=== PATIENT | female | born 1945 | race Caucasian/White ===

== ENCOUNTER 2018-07-28 17:24 | Inpatient (IN) ==
--- NOTE | 2018-07-28 17:48 | Emergency Department Note ---
Disposition Clinical Impression: Stroke Qualifiers: CVA mechanism: unspecified Qualified Code(s): I63.9 - Cerebral infarction, unspecified Anemia Qualifiers: Anemia type: unspecified type Qualified Code(s): D64.9 - Anemia, unspecified Disposition: Admitted As Inpatient Condition: Good Time of Disposition: 20:36 General Adult HPI - General Chief complaint: ED Neuro Symptoms/Deficit Stated complaint: numb left side Time Seen by Provider: 07/28/18 17:26 Source: patient, EMS Mode of arrival: EMS Limitations: no limitations Nursing Notes Reviewed: Yes Vital Signs Reviewed: Yes - History of Present Illness HPI Narrative: Franca Ferguson is a 72 YOF with history of HTN, TIA, DDD who presents to the ED via EMS from home due to left-sided nubness is approximately 1000 this morning. Patient also admits to difficulty with word finding. She also admits to "starry vision" intermittently. She denies any new onset weakness and is unable to ambulate at baseline. She states that she hasn't been feeling well for the past couple days. She denies CP, SOB, lightheadedness, dizziness, N/V/D. Pt Subjective Complaint: left-sided numbness Pain Scale: 0 - Related Data Home Medications Medication Instructions Recorded Confirmed Percocet 5-325 mg Tablet 5 - 325 tab PO PRN PRN 09/11/14 09/11/14 Synthroid 09/11/14 09/11/14 Atenolol/Chlorthalidone [Tenoretic 03/26/15 50 Tablet] Ferrous Sulfate [Iron] 03/26/15 FluocinoNIDE 0.05% CRM [Lidex] 1 appl TP BID 03/26/15 03/26/15 Ketoconazole 2% CRM [Nizoral Cream] 03/26/15 LORazepam [Ativan] 03/26/15 Potassium 03/26/15 Previous Rx's Medication Instructions Recorded Promethazine/Codeine 5 ml PO HS #60 syrup 03/26/15 [Phenergan/Codeine] Benzonatate [Tessalon] 200 mg PO TID PRN #30 capsule 06/25/15 GuaiFENesin ER [Mucinex] 1,200 mg PO BID #20 tbbp.12hr 06/25/15 cephALEXin [Keflex] 500 mg PO QID #40 capsule 06/25/15 Allergies Allergy/AdvReac Type Severity Reaction Status Date / Time azithromycin Allergy Rash Verified 06/25/15 14:49 [From Zithromax Z-Zackery] All systems ED: reviewed and negative except as stated. Past Medical History - Past Medical History Medical history: Reports: hypertension, TIA Surgical history: Reports: appendectomy, cholecystectomy, hip replacement, sinus surgery Psychiatric history: Reports: no psych history - Social History Smoking Status: Never smoker Smokeless Tobacco Status: No Alcohol use: Reports: none Drug use: Reports: none Physical Exam - General Limitations: no limitations General appearance: alert, in no apparent distress - Head Head exam: atraumatic, normocephalic - Eye Eye exam: Present: normal appearance, EOMI - ENT ENT exam: mucous membranes moist - Neck Neck exam: Present: normal inspection, trachea midline - Respiratory Respiratory exam: Present: normal lung sounds bilaterally. Absent: respiratory distress, wheezes, accessory muscle use - Cardiovascular Cardiovascular exam: Present: regular rate, normal rhythm, +S1, +S2 - Abdominal Exam Abdominal exam: Present: soft, Non-Tender, normal bowel sounds - Rectal Exam Bilingual Case Manager present during exam: Yes (Dr. Gee) Rectal exam: Present: other (No edgar blood, guaic positive stool) - Extremities Exam Extremities exam: Present: tenderness (left mid-dorsum of the foot). Absent: pedal edema - Neurological Exam Neurological exam: Present: alert, oriented X3, CN II-XII intact - Expanded Neurological Exam Speech: Present: fluid speech (mild difficulty with word finding) Cerebellar function: finger to nose: Normal Motor strength - LUE: 4/5 Motor strength - RUE: 4/5 Motor strength - LLE: 0/5 (patient's states this is baseline) Motor strength - RLE: 0/5 (patient states this is baseline) - Psychiatric Psychiatric exam: Present: normal affect, normal mood - Skin Skin exam: Present: warm, dry, intact. Absent: rash, cyanosis, diaphoresis Course Vital Signs Temperature 98.8 F 07/28/18 17:26 Pulse Rate 79 07/28/18 17:26 Respiratory Rate 18 07/28/18 17:26 Blood Pressure 140/65 07/28/18 17:26 O2 Sat by Pulse Oximetry 95 07/28/18 17:26 Temperature 98.8 F 07/28/18 17:26 Pulse Rate 78 07/28/18 18:20 Respiratory Rate 18 07/28/18 18:20 Blood Pressure 137/64 07/28/18 18:20 O2 Sat by Pulse Oximetry 95 07/28/18 17:26 Oxygen Delivery Oxygen Delivery Room Air Medical Decision Making - MDM Narrative Medical decision making narrative: Left-sided decreased sensations since 1000 today, stoke alert called. NIH score of 2 [facility] consulted, not candidate for TPA or surgical intervention. Recommended MRI. CT head suggestive of subacute infarction in right occipital and parietal lobes in the distribution of the RCA. No associated intracranial hemorrhage. Rectal exam performed dt unexplained anemia, stool guaiac positive. Suspected bed bug discovered by Dr. Gee during exam, live sample sent to lab. Patient accepted for admission by Dr. Rivera for further evaluation with MRI. - Medical Records Medical records reviewed: Yes I reviewed the patient's medical records. - Lab Data Lab results reviewed: Yes I reviewed the patient's lab results. Result diagrams: 07/28/18 17:42 07/28/18 17:42 Lab Results 07/28/18 07/28/18 07/28/18 Range/Units 17:29 17:42 17:42 WBC 7.8 (4.3-11.1) K/mcL RBC 3.81 L (3.82-4.97) M/mcL Hgb 8.3 L (11.5-15.4) g/dL Hct 30.0 L (35.3-44.9) % MCV 78.7 L (83.0-100.0) fL MCH 21.8 L (28.0-33.3) pg MCHC 27.7 L (31.6-35.5) g/dL RDW 18.7 H (11.5-14.5) % Plt Count 365 (140-400) K/mcL MPV 8.5 L (9.4-12.4) fL PT 12.2 H (9.4-12.1) Seconds INR 1.1 APTT 34.0 (26.0-36.0) Seconds Sodium (136-145) mEq/L Potassium (3.5-5.1) mEq/L Chloride (98-107) mEq/L Carbon Dioxide (23-29) mEq/L BUN (8-23) mg/dL Creatinine (0.60-1.20) mg/dL Est GFR ( Amer) (> 60) Est GFR (Non-Af Amer) (> 60) BUN/Creatinine Ratio (6-26) Glucose (70-105) mg/dL POC Glucose 131 H (70-99) mg/dL Calculated Osmolality (280-300) Calcium (8.6-10.3) mg/dL Troponin I (< 0.04) ng/mL Stool Occult Bld Scrn (Negative) 07/28/18 07/28/18 Range/Units 17:42 19:56 WBC (4.3-11.1) K/mcL RBC (3.82-4.97) M/mcL Hgb (11.5-15.4) g/dL Hct (35.3-44.9) % MCV (83.0-100.0) fL MCH (28.0-33.3) pg MCHC (31.6-35.5) g/dL RDW (11.5-14.5) % Plt Count (140-400) K/mcL MPV (9.4-12.4) fL PT (9.4-12.1) Seconds INR APTT (26.0-36.0) Seconds Sodium 138 (136-145) mEq/L Potassium 3.7 (3.5-5.1) mEq/L Chloride 107 (98-107) mEq/L Carbon Dioxide 25 (23-29) mEq/L BUN 12 (8-23) mg/dL Creatinine 0.55 L (0.60-1.20) mg/dL Est GFR ( Amer) > 60 (> 60) Est GFR (Non-Af Amer) > 60 (> 60) BUN/Creatinine Ratio 22 (6-26) Glucose 115 H (70-105) mg/dL POC Glucose (70-99) mg/dL Calculated Osmolality 287 (280-300) Calcium 9.6 (8.6-10.3) mg/dL Troponin I < 0.03 (< 0.04) ng/mL Stool Occult Bld Scrn Positive A (Negative) - Radiology Data Radiology results reviewed: Yes I reviewed the patient's radiology results. - EKG Data EKG #1 EKG attestation: Yes I reviewed and interpreted this EKG. EKG results narrative: Read AFib/AFlutter although could also be artifact HR 84, RR 716, QRS duration 1:15 QT 384 QTC 454. No acute ischemic changes, no ST elevation or depression, no Q waves. Attestation Statement - Attestation Attestation: I, Mukul Gee, examined this patient and my medical decision-making was reviewed with the DIRECTOR VACCINE/PA/Advanced Practice Nurse/Resident Physician. I agree with the documented findings, disposition and treatment plan as described except to the e xtent set forth below. 72-year-old female presents emergency Department with concerns of paresthesias of the left face, left upper extremity and left lower extremity. Patient states she woke with her symptoms and did not have them yesterday. Stroke alert was called after the initial evaluation. She denies fever, chills, nausea, vomiting and diarrhea. Patient is moving all extremities in the emergency department. Abdomen is nontender to palpation. Laboratory results showed anemia. Rectal exam was performed with filter assembler present showing guaiac positive stool. CT of the head showed likely subacute infarct. No acute extremity hemorrhage noted. Patient will be admitted to the hospitalist for further care and evaluation and MRI. Patient is outside of the window for TPA. She is not be criteria for thrombectomy. NIH Stroke Scale - Level of Consciousness LOC: Alert - LOC Questions LOC Questions: Answers both correctly - LOC Commands LOC Commands: Performs both correctly - Best Gaze Best Gaze: Normal - Visual Visual: No visual loss - Facial Palsy Facial Palsy: Normal - Motor Arms Motor Arm-Left: No drift for 10 seconds Motor Arm-Right: No drift for 10 seconds - Motor Legs Motor Leg-Left: No drift for 5 seconds Motor Leg-Right: No drift for 5 seconds Motor Leg Comment: unable to life legs at baseline - Limb Ataxia Limb Ataxia: Absent of affected limb too weak to perform exam - Sensory Sensory: Mild to moderate loss, "not as sharp" - Best Language Best Language: Mild to moderate aphasia. Examiner can identify picture from response (difficulty with word finding, needs extra time) - Dysarthria Dysarthria: Normal - Extinction and Inattention Extinction and Inattention: Normal - NIHSS Total Score NIHSS Total Score: 2
[2018-07-28 17:52] LABS: Hemoglobin 8.3 g/dL (11.5-15.4); Mean Corpuscular HGB Conc 27.7 g/dL (31.6-35.5); Mean Corpuscular Hemoglobin 21.8 pg (28.0-33.3); Mean Corpuscular Volume 78.7 fL (83.0-100.0); Mean Platelet Volume 8.5 fL (9.4-12.4); Platelet Count 365 K/mcL (140-400); Red Blood Count 3.81 M/mcL (3.82-4.97); Red Cell Distribution Width 18.7 % (11.5-14.5); White Blood Count 7.8 K/mcL (4.3-11.1)
[2018-07-28 18:04] LABS: INR 1.1; Prothrombin Time 12.2 Seconds (9.4-12.1)
[2018-07-28 19:10] LABS: BUN/Creatinine Ratio 22 (6-26); Blood Urea Nitrogen 12 mg/dL (8-23); Calcium 9.6 mg/dL (8.6-10.3); Carbon Dioxide 25 mEq/L (23-29); Chloride 107 mEq/L (98-107); Glucose 115 mg/dL (70-105); Osmolality,Calculated 287 (280-300); Potassium 3.7 mEq/L (3.5-5.1); Sodium 138 mEq/L (136-145); eGFR For African Americans > 60 (> 60); eGFR For Non-African Americans > 60 (> 60)
[2018-07-28 19:17] LABS: Troponin I < 0.03 ng/mL (< 0.04)
[2018-07-28] MEDS ORDERED: Aspirin 325 MG TABLET PO ONE (20:37)
[2018-07-28] MEDS ORDERED: 0.9 % Sodium Chloride 1,000 ML IVC SCH (21:45)
[2018-07-29] MEDS ORDERED: Naloxone 0.4 MG/ML INJ IVP PRN (00:05)
[2018-07-29] MEDS ORDERED: Pantoprazole 40 MG VIAL IVP SCH (00:52)
--- NOTE | 2018-07-29 00:55 | Internal Med History&Physical ---
Date of Encounter: 07/29/18 Time of Encounter: 00:50 Internal Medicine - H&P: HPI Chief complaint: Left-sided numbness History of present illness: Ms. Ferguson is a 72 year old female with a past medical history of COPD on 2 L nasal cannula, sleep apnea, hypertension, thyroid disease, GERD and TIA who presented to the ED with complaints of acute onset left-sided numbness which began around 10 AM this morning. She states she initially noted numbness and tingling around the left side of her mouth which then spread to involve the left side of her face and extended downwards to her arm and leg. She is also noting difficulty expressing herself, stating that she knows what she wants to say but is having difficulty getting the words out which his not normal for her. She reports significant weakness and fatigue which began about 3 days ago. Patient was noted to have a low hemoglobin on arrival but denies any dark tarry stools or bloody stools. Patient reports she has had a colonoscopy in the past but does not recall how long ago. No reports of unintentional weight loss. She denies fever, chills, shortness of breath, chest pain, nausea, vomiting and diarrhea. Shortly after arrival, Stroke alert was called after the initial evaluation. CT of the head showed likely subacute infarct. Patient was deemed not a candidate for TPA and recommended MRI of the brain with further workup. EKG reviewed was normal sinus rhythm with no evidence of ischemic changes. On arrival vitals were stable with a blood pressure 140/65, heart rate is 79, saturating 95% on 2 L. Laboratory workup notable for a normal WBC, hemoglobin of 8.3 and normal kidney function and coags. Rectal exam performed in the ED demonstrated guaiac positive stool. On my assessment patient continues to report numbness on the left side of the face and extremities. Past Med Surg Social Fam HX - Past Medical History Medical history: hypertension, TIA Psychiatric history: no psych history - Past Surgical History Surgical History: appendectomy, cholecystectomy, hip replacement, sinus surgery Additional surgical history: ORAL SURGERY UNSPECIFICED. GASTRIC BYPASS 1992 - Social History Smoking Status: Never smoker Smokeless Tobacco Status: No Alcohol use: none Drug use: none - Additional Family History Additional family history: Noncontributory Internal Medicine - H&P: Meds Gabapentin [Neurontin] 600 mg PO HS 07/29/18 [History] Non-Formulary Medication 07/29/18 [History] Oxycodone HCl/Acetaminophen [Percocet 5-325 mg Tablet] 1 each PO Q6H PRN 07/29/18 [History] Allergy/AdvReac Type Severity Reaction Status Date / Time azithromycin Allergy Rash Verified 07/29/18 14:22 [From Zithromax Z-Zackery] All Systems PM: A 10-system review of systems was performed and is negative for pertinent findings except as documented above in the HPI. - Constitutional Constitutional: no chills, no fever(s), no night sweats - EENT Eyes: no change in vision, no discharge, no pain, no photophobia Ears: no ear discharge, no ear pain, no tinnitus Nose, mouth and throat: no dysphagia, no nasal discharge, no neck pain, no sore throat - Cardiovascular Cardiovascular ROS IM: no chest pain, no diaphoresis, no dyspnea, no lightheadedness, no palpitations, no syncope - Respiratory Respiratory: no cough, no dyspnea, no wheezing, no excessive phlegm production - Gastrointestinal Gastrointestinal: no abdominal pain, no diarrhea, no hematemesis, no hematochezia, no melena, no nausea, no vomiting - Genitourinary Genitourinary: no change in urinary stream, no dysuria, no flank pain, no hematuria - Musculoskeletal Musculoskeletal ROS IM: no numbness, no tingling - Integumentary Integumentary IM: no rash, no unusual bruising - Neurological Neurological ROS: no confusion, no convulsions, no focal weakness, no numbness, no tingling, no tremor(s) - Hematologic/Lymphatic Hematologic/Lymphatic: no easy bruising - Constitutional Vitals: Temp Pulse Resp BP Pulse Ox 98.3 F 77 14 178/96 99 07/28/18 22:46 07/28/18 22:46 07/28/18 22:46 07/28/18 22:46 07/28/18 23:00 Exam: General: Alert and oriented 3 lying in bed in no acute distress Skin:Normal color, no rash, no lesions. HEENT:EOM, pupils equal, round and reactive. Cardiovascular:Normal S1 & S2, no rubs, murmurs or gallops. No JVD. Pulse regular. Lungs:Normal breath sounds, no wheezes or crackles. Abdomen:Soft, non-tender, no rigidity. Extremities:No deformity, no edema or tenderness, no joint swelling or clubbing. Neurological:Normal cognition; cranial nerves II through XII intact; mild left-sided pronator drift. Upper and lower extremity strength 5 out of 5 bilaterally. No dysmetria. Diminished sensation on the left side of the face and upper and lower extremities as compared to the right Pulses:Carotid and radial pulses normal +2. Rest of the physical exam is non contributory Internal Med - H&P Results - Labs CBC & Chem 7: 07/29/18 14:41 07/29/18 05:16 Labs: Short CBC 07/28/18 Range/Units 17:42 WBC 7.8 (4.3-11.1) K/mcL Hgb 8.3 L (11.5-15.4) g/dL Hct 30.0 L (35.3-44.9) % Plt Count 365 (140-400) K/mcL BMP 07/28/18 17:42 Sodium 138 Potassium 3.7 Chloride 107 Carbon Dioxide 25 BUN 12 Creatinine 0.55 L Glucose 115 H Calcium 9.6 Cardiac Enzymes 07/28/18 Range/Units 17:42 Troponin I < 0.03 (< 0.04) ng/mL - Impressions ITS Impressions Head CT 07/28/18 17:45 IMPRESSION: 1. Suspicion for a subacute infarction in the right occipital and parietal lobes in the distribution of the right posterior cerebral artery. No associated intracranial hemorrhage. Consider MRI. Critical results were called by Dr. Ayden Dimas MD to Tonia Nunez on 07/28/2018 at 18:18. 2. Moderate to severe white matter disease most likely due to chronic small vessel ischemia. Underlying punctate areas of ischemia would be difficult to exclude. 3. Suspected old lacunar infarcts in the bilateral basal ganglia. D/ / Ayden Dimas MD / Ayden Dimas MD Interpreting Provider: Ayden Dimas MD - Assessment and Plan (1) Stroke-like symptoms Current Visit: Yes Status: Acute Assessment and plan: 72-year-old female with a past medical history significant for hypertension and TIA in the remote past presenting with acute onset left-sided numbness involving the face and extremities with what appears to be expressive aphasia which began around 10 AM this morning concerning for CVA. CT scan of the head suspicious for a subacute infarction in the right occipital and parietal lobes in the distribution of the right posterior cerebral artery. Patient evaluated by [facility] neurology and was not a candidate for TPA and recommended further workup with MRI. EKG reviewed which showed normal sinus rhythm without any evidence of ischemic changes. Continues to have persistent diminished sensation on left side of the face and upper and lower extremities. Patient received loading dose of aspirin in the ED. -Neurochecks -Telemetry -Holding antihypertensives to allow for permissive hypertension -Echocardiogram/carotid duplex in the morning -MRI of the brain without contrast if possible. Patient does have history of hip replacement approximately 6 years ago. Otherwise consider CTA of the head and neck -PT/OT consult -Consult to neurology (2) Anemia Current Visit: Yes Status: Acute Assessment and plan: Patient presenting with microcytic anemia with a hemoglobin of 8.3 and MCV of 78.7. Hemoccult testing positive per ED assessment. Last hemoglobin assessment in our records was in 2014 with a hemoglobin of 10.0. Patient has a history of GERD and documented in her records although denies it. Has had previous colonoscopy several years back which is not in our records. She states several polyps were removed. No reports of unintentional weight loss though patient does admit to losing weight intentionally. -Patient was typed and screened -We will trend H&H -We will keep patient NPO -Given history of GERD we will start patient on IV Protonix 40 mg twice a day -Consult to gastroenterology Qualifiers: Anemia type: unspecified type Qualified Code(s): D64.9 - Anemia, unspecified (3) GI bleed Current Visit: Yes Status: Suspected Assessment and plan: Patient presenting with a hemoglobin of 8.3 with Hemoccult positive stools. -Trend troponin. Continue with IV hydration. -See anemia above Qualifiers: GI bleed type/associated pathology: unspecified gastrointestinal hemorrhage type Qualified Code(s): K92.2 - Gastrointestinal hemorrhage, unspecified (4) Hypertension Current Visit: Yes Status: Chronic Assessment and plan: BP stable. Holding antihypertensives for now to allow for permissive hypertension Qualifiers: Hypertension type: essential hypertension Qualified Code(s): I10 - Essential (primary) hypertension (5) DVT prophylaxis Current Visit: Yes Status: Acute Assessment and plan: Intermittent pneumatic compression devices - Time Spent With Patient Total time spent is greater than 50% in coordination of care (as documented) at patient's floor/unit and/or counseling patient:
[2018-07-29 01:50] LABS: Bilirubin,Urine Negative (Negative); Blood,Urine Negative (Negative); Clarity,Urine Cloudy (Clear); Color,Urine Yellow (Yellow); Glucose,Urine (UA) Normal (Normal); Ketones,Urine Negative (Negative); Leukocyte Esterase,Urine Large (Negative); Nitrite,Urine Positive (Negative); Protein,Urine Negative (Neg-Trace); Specific Gravity,Urine < 1.005 (1.010-1.025); Urobilinogen,Urine Normal (Normal)
[2018-07-29 01:51] LABS: Bacteria,Urine Many per hpf (None-Few); Hyaline Casts,Urine None Seen per lpf (None-Few); WBC,Urine 30-50 per hpf (0-3)
[2018-07-29 02:04] LABS: RBC,Urine 0-3 per hpf (0-3); Squamous Epithelial Cell,Urine Few per lpf (None-Few)
[2018-07-29] MEDS: D5% in 0.9% NACL 1,000 ML IVC SCH (02:52)
[2018-07-29 06:03] LABS: Hemoglobin 7.5 g/dL (11.5-15.4); Mean Corpuscular Hemoglobin 21.6 pg (28.0-33.3); Red Blood Count 3.47 M/mcL (3.82-4.97); Red Cell Distribution Width 18.6 % (11.5-14.5)
[2018-07-29 06:04] LABS: Hematocrit 27.9 % (35.3-44.9); Mean Corpuscular HGB Conc 26.9 g/dL (31.6-35.5); Mean Corpuscular Volume 80.4 fL (83.0-100.0); Mean Platelet Volume 8.9 fL (9.4-12.4); Platelet Count 357 K/mcL (140-400); White Blood Count 5.9 K/mcL (4.3-11.1)
[2018-07-29 06:09] LABS: INR 1.2; Prothrombin Time 13.1 Seconds (9.4-12.1)
[2018-07-29 06:28] LABS: Alanine Aminotransferase 6 Units/L (7-52); Albumin/Globulin Ratio 0.9 (1.1-2.2); Alkaline Phosphatase 120 Units/L (34-104); Aspartate Amino Transferase 10 Units/L (13-39); BUN/Creatinine Ratio 16 (6-26); Bilirubin,Total 0.3 mg/dL (0.3-1.0); Blood Urea Nitrogen 9 mg/dL (8-23); Calcium 9.2 mg/dL (8.6-10.3); Carbon Dioxide 28 mEq/L (23-29); Chloride 105 mEq/L (98-107); Chol/HDL Ratio 3.5 (0-4.9); Cholesterol 76 mg/dL (< 200); Globulin 3.4 g/dL (2.4-3.5); Glucose 89 mg/dL (70-105); HDL Cholesterol 22 mg/dL (40-59); LDL Cholesterol,Calculated 41 mg/dL (0-99); LDL Cholesterol,Direct 49 mg/dL (75-193); Osmolality,Calculated 290 (280-300); Potassium 3.8 mEq/L (3.5-5.1); Sodium 141 mEq/L (136-145); Total Protein 6.4 g/dL (6.4-8.9); Triglycerides 67 mg/dL (< 150); eGFR For African Americans > 60 (> 60); eGFR For Non-African Americans > 60 (> 60)
[2018-07-29] MEDS ORDERED: Perflutren Lipid Microsphere 1.3 ML in 0.9 % Sodium Chloride 8.7 ML IVP ONE (08:11)
[2018-07-29 08:31] LABS: Estimated Average Glucose 120 mg/dl
[2018-07-29 09:22] LABS: % Iron Saturation 17 % (15-50); Iron 54 mcg/dL (50-170); Transferrin 224 mg/dL (203-362)
[2018-07-29] MEDS ORDERED: *HR* LORazepam 2 MG/ML VIAL IVP ONE (10:19)
--- NOTE | 2018-07-29 11:02 | Neurology - Consult Note ---
<Jose Ferguson - Last Filed: 07/29/18 13:33> Date of Encounter: 07/29/18 Time of Encounter: 10:59 Assessment and Plan (1) Stroke-like symptoms Current Visit: Yes Status: Acute P/w dizziness, and left perioral parasthesias, as well as left arm and leg parasthesias. Neurology c/s to evaluate for CVA. CT imaging of the head reveals suspicion for subacute infarction in the right occipital and parietal lobes in the distribution of the right HOSE STRIPPER. Additionally, there is moderate to severe white matter disease most likely due to chronic small vessel ischemia but underlying punctate areas of ischemia would be difficult to exclude. There is suspected old lacunar infarcts in the bilateral basal ganglia The neurological exam confirms diminished sensation to the left face, arm and leg. She also has a mild left arm drift. As such a full stroke w/u is recommending. Carotid duplex is pending. The brain MRI is also pending. An echocardiogram has been completed the EF is 56%, there is no valvular dysfunction and no PFO or intracardiac thrombus has been identified. She is Aspirin naive and as such our recommendations are to c/w ASA at this juncture (unless contraindicated) and add a daily Zocor. C/W PT/OT. Further recommendat ions are pending the rest of the workup. Neurology will continue to follow. History of Present Illness Chief complaint: left sided parasthesias and dizziness r/o CVA HPI: Ms. Ferguson is a 72 year old female with a PMH of COPD, sleep apnea, hypothydoidism, HTN, and previous TIA who is Aspirin naive and presents with an approximate three-day history of dizziness and an acute onset of left-sided paresthesias in the face, arm and leg which began at approximately 10 AM on the morning of 07/28/18. She is additionally reporting difficulty with word finding. She notes that her symptoms began approximately 3 days ago with fatigue and malaise as well as dizziness and as such she is having decreased activity tolerance. She denies any visual disturbances, headaches, dysphagia, dysarthria, facial asymmetry, and/neck stiffness, arthralgias beyond normal, myalgias, unilateral weakness, chest pain, palpitations. She notes a chronic shuffling gait but denies new gait difficulty. gender symptoms of stroke alert was called in the ED a CT of the head was obtained. There are concerns for a subacute infarct in the right occipital and parietal lobes. There was findings of remote lacunar infarcts in the bilateral basal ganglia which the patient was unaware of. However, given onset of sx and time of presentation to the ED she is not a candidate for TPA. It was recommended to admit and workup for suspected acute CVA. Past Med Surg Social Fam HX - Past Medical History Medical history: hypertension, TIA Psychiatric history: no psych history - Past Surgical History Surgical History: appendectomy, cholecystectomy, hip replacement, sinus surgery Additional surgical history: ORAL SURGERY UNSPECIFICED. GASTRIC BYPASS 1992 - Social History Smoking Status: Never smoker Smokeless Tobacco Status: No Alcohol use: none Drug use: none Medications and Allergies Gabapentin [Neurontin] 600 mg PO HS 07/29/18 [History] Non-Formulary Medication 07/29/18 [History] Oxycodone HCl/Acetaminophen [Percocet 5-325 mg Tablet] 1 each PO Q6H PRN 07/29/18 [History] Allergy/AdvReac Type Severity Reaction Status Date / Time azithromycin Allergy Rash Verified 07/29/18 14:22 [From Zithromax Z-Zackery] All Systems: The remainder of the systems were reviewed and are negative Review of Systems: REVIEW OF SYSTEMS GENERAL: Positive - malaise, fatigue and decreased activity tolerance NEUROLOGIC: Negative for any blurry vision, blind spots, double vision, facial asymmetry, dysphagia, dysarthria, hemiparesis, ataxia, unilateral weakness Positive - perioral parasthesias, left arm and leg parasthesias, and dizziness HEENT: Negative for any head trauma, neck trauma, neck stiffness, photophobia, phonophobia or headaches CARDIAC: Negative for any chest pain, dyspnea, peripheral edema or palpitations GASTROINTESTINAL: Negative for any abdominal pain, nausea, vomiting GENITOURINARY: Negative for any hematuria, or incontinence. Positive for some mild urinary discomfort and malodorous urine MUSCULOSKELETAL: Positive - decreased activity tolerance Physical Examination - Vital Signs Vital Signs: Initial Vital Signs Temp Pulse Resp BP Pulse Ox 98.8 F 79 18 140/65 95 07/28/18 17:26 07/28/18 17:26 07/28/18 17:26 07/28/18 17:26 07/28/18 17:26 - Exam Exam: Examination: General Examination: *CONSTITUTIONAL: Alert and oriented x3, no acute distress *GENERAL APPEARANCE OF PATIENT obese elderly female, appears to have poor hygiene *EYES: pupils equal, round, reactive to light and accommodation, conjunctiva clear *CARDIOVASCULAR no peripheral edema, distal temperature normal, dorsalis pedis pulses normal. see vitals Musculoskeletal: *GAIT AND STATION shuffling gait while ambulating to bedside commode *ASSESSMENT OF MUSCLE STRENGTH IN THE UPPER AND LOWER EXTREMITIES bilateral deltoid, bicep, safekeeping clerk strength hip flexors ,anterior tibialis, dorso flexion of the foot 4/5. Left Tricep strength remains 4/5 but is more diminished than the right *MUSCLE TONE IN THE UPPER AND LOWER EXTREMITIES normal. No abnormal movements, fasciculations or atrophy identified. Neurological: *ORIENTATION to person, situation, time and place *RECURRENT AND REMOTE MEMORY intact *ATTENTION AND CONCENTRATION are normal *LANGUAGE FUNCTION no significant aphasia or dysarthia was noted. *FUND OF KNOWLEDGE aware of current events, past history, vocabulary *MENTAL attention span and concentration normal. *CN II optic fundi were normal, no papilledema noted. *CN III,IV, PERRLA extraocular eye movements were full, no nystagmus and no ptosis noted. *CN V shows normal sensation and jaw opens symmetrically. *CN VII shows normal facial movement symmetrically, upper and lower bilaterally. *CN VIII shows no significant hearing loss on exam *CN IX,,X palate elevated symmetrically *CN XI normal strength in the sternocleidomastoid muscles, symmetrical shoulder shrugging. *CN XII tongue protruded in the midline, with normal strength and movement. *SENSORY EXAMINATION Diminished sensation to left face, arm and leg difficulty distinguishing light vs dull sensation on the LUE and left face. Difficulty with dull sensation in the bilateral lower extremities. *REFLEXES: DTR's are symmetrical b/l bicep, and tricep 1/4; DTR b/l patellar absent as are Achilles *CEREBELLAR TESTING mild dysmetria with left finger to nose. Mild left arm drift noted *PAIN LEVEL 0/10 Results - Laboratory Findings CBC and BMP: 07/29/18 05:16 07/29/18 05:16 Abnormal lab findings: Abnormal lab results RBC 3.47 M/mcL (3.82-4.97) L 07/29/18 05:16 Hgb 7.5 g/dL (11.5-15.4) L 07/29/18 05:16 Hct 27.9 % (35.3-44.9) L 07/29/18 05:16 MCV 80.4 fL (83.0-100.0) L 07/29/18 05:16 MCH 21.6 pg (28.0-33.3) L 07/29/18 05:16 MCHC 26.9 g/dL (31.6-35.5) L 07/29/18 05:16 RDW 18.6 % (11.5-14.5) H 07/29/18 05:16 MPV 8.9 fL (9.4-12.4) L 07/29/18 05:16 PT 13.1 Seconds (9.4-12.1) H 07/29/18 05:16 0.58 mg/dL (0.60-1.20) L 07/29/18 05:16 Glucose 115 mg/dL (70-105) H 07/28/18 17:42 POC Glucose 131 mg/dL (70-99) H 07/28/18 17:29 5.8 % (-5.6) H 07/29/18 05:16 AST 10 Units/L (13-39) L 07/29/18 05:16 ALT 6 Units/L (7-52) L 07/29/18 05:16 120 Units/L (34-104) H 07/29/18 05:16 3.0 g/dL (3.5-5.7) L 07/29/18 05:16 0.9 (1.1-2.2) L 07/29/18 05:16 LDL Cholesterol Me[place] 49 mg/dL (75-193) L 07/29/18 05:16 22 mg/dL (40-59) L 07/29/18 05:16 Cloudy (Clear) A 07/29/18 01:23 Ur Specific [place] < 1.005 (1.010-1.025) L 07/29/18 01:23 Positive (Negative) A 07/29/18 01:23 Ur Leukocyte Esterase Large (Negative) H 07/29/18 01:23 30-50 per hpf (0-3) H 07/29/18 01:23 Many per hpf (None-Few) H 07/29/18 01:23 Ur Culture Indicated? YES (NO) A 07/29/18 01:23 Stool Occult Bld Scrn Positive (Negative) A 07/28/18 19:56 - Diagnostic Findings Additional findings: CT/CT stroke alert head wo con IMPRESSION: 1. Suspicion for a subacute infarction in the right occipital and parietal lobes in the distribution of the right posterior cerebral artery. No associated intracranial hemorrhage. Consider MRI. Critical results were called by Dr. Ayden Dimas MD to Tonia Nunez on 07/28/2018 at 18:18. 2. Moderate to severe white matter disease most likely due to chronic small vessel ischemia. Underlying punctate areas of ischemia would be difficult to exclude. 3. Suspected old lacunar infarcts in the bilateral basal ganglia. Consult Discharge Plan - Plan Referrals: Larry Martínez MD [Primary Care Provider] - <MelidaAmelia - Last Filed: 07/29/18 15:48> Date of Encounter: 07/29/18 Assessment and Plan (1) Stroke-like symptoms Current Visit: Yes Status: Acute History of Present Illness HPI: Ms. Ferguson is a 72 year old female All Systems: The remainder of the systems were reviewed and are negative Physical Examination - Vital Signs Vital Signs: Initial Vital Signs Temp Pulse Resp BP Pulse Ox 98.8 F 79 18 140/65 95 07/28/18 17:26 07/28/18 17:26 07/28/18 17:26 07/28/18 17:26 07/28/18 17:26 Results - Laboratory Findings CBC and BMP: 07/29/18 14:41 07/29/18 05:16 Abnormal lab findings: Abnormal lab results RBC 3.47 M/mcL (3.82-4.97) L 07/29/18 05:16 Hgb 8.2 g/dL (11.5-15.4) L 07/29/18 14:41 Hct 30.1 % (35.3-44.9) L 07/29/18 14:41 MCV 80.4 fL (83.0-100.0) L 07/29/18 05:16 MCH 21.6 pg (28.0-33.3) L 07/29/18 05:16 MCHC 26.9 g/dL (31.6-35.5) L 07/29/18 05:16 RDW 18.6 % (11.5-14.5) H 07/29/18 05:16 MPV 8.9 fL (9.4-12.4) L 07/29/18 05:16 PT 13.1 Seconds (9.4-12.1) H 07/29/18 05:16 0.58 mg/dL (0.60-1.20) L 07/29/18 05:16 Glucose 115 mg/dL (70-105) H 07/28/18 17:42 POC Glucose 131 mg/dL (70-99) H 07/28/18 17:29 5.8 % (-5.6) H 07/29/18 05:16 AST 10 Units/L (13-39) L 07/29/18 05:16 ALT 6 Units/L (7-52) L 07/29/18 05:16 120 Units/L (34-104) H 07/29/18 05:16 3.0 g/dL (3.5-5.7) L 07/29/18 05:16 0.9 (1.1-2.2) L 07/29/18 05:16 LDL Cholesterol Measurd 49 mg/dL (75-193) L 07/29/18 05:16 22 mg/dL (40-59) L 07/29/18 05:16 Cloudy (Clear) A 07/29/18 01:23 Ur Specific [place] < 1.005 (1.010-1.025) L 07/29/18 01:23 Positive (Negative) A 07/29/18 01:23 Ur Leukocyte Esterase Large (Negative) H 07/29/18 01:23 30-50 per hpf (0-3) H 07/29/18 01:23 Many per hpf (None-Few) H 07/29/18 01:23 Ur Culture Indicated? YES (NO) A 07/29/18 01:23 Stool Occult Bld Scrn Positive (Negative) A 07/28/18 19:56
[2018-07-29] MEDS: Pantoprazole 40 MG VIAL IVP SCH (11:55)
--- NOTE | 2018-07-29 12:08 | Electrocardiograph Report ---
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
--- NOTE | 2018-07-29 12:16 | Internal Med Progress Note ---
Hospitalist Progress Note - Encounter Date of Encounter: 07/29/18 Time of Encounter: 09:45 - Subjective Interval History: H&P reviewed. Pt with COPD on 2L O2, HTN, TIA, hypothyroidism, was admitted for L sided weakness and anemia. She however denies any melena, hematochezia, BRBPR, or hematemesis. Still has mild weakness on the left upper limb and lower extremity but denies any facial droop or slurring of speech. She also endorses intermittent history of dysuria and urinary frequency recently. No fever overnight - Exam Vitals: Temp Pulse Resp BP Pulse Ox 98.3 F 67 18 141/74 97 07/29/18 09:44 07/29/18 11:44 07/29/18 11:44 07/29/18 11:44 07/29/18 11:44 Exam: General: Alert and oriented 3 lying in bed in no acute distress Skin:Normal color, no rash, no lesions. HEENT:EOMI, pupils equal, round and reactive. Cardiovascular:Normal S1 & S2, no rubs, murmurs or gallops. No JVD. Pulse regular. Lungs:Normal breath sounds, no wheezes or crackles. Abdomen:Soft, non-tender, no rigidity. Extremities:No deformity, no edema or tenderness, no joint swelling or clubbing. Neurological:cranial nerves II through XII intact; mild left-sided pronator drift and L UE/LE power 4+/5. 5/5 in R UE/LE. No dysmetria. Unable to appreciate any significant sensory loss. - Assessment and Plan (1) GI bleed Current Visit: Yes Status: Suspected Assessment and Plan: Patient presenting with microcytic anemia with a hemoglobin of 8.3 and MCV of 78.7. Hemoccult testing positive per ED assessment. Last hemoglobin assessment in our records was in 2014 with a hemoglobin of 10.0. Has had previous colonoscopy/EGD several years back which is not in our records. She states the findings were benign at that time. trend H&H discussed with GI, likely EGD tomorrow. Will feed the pt today and keep her nothing by mouth after midnight PPI BID (2) Anemia Current Visit: Yes Status: Acute Assessment and Plan: as above iron profile unremarkable (3) Acute cystitis Current Visit: Yes Status: Acute Assessment and Plan: Endorses intermittent dysuria and urinary frequency with urinalysis positive for nitrite as well as leukocyte esterase. Will start IV Rocephin and follow-up on urine culture (4) Stroke-like symptoms Current Visit: Yes Status: Acute Assessment and Plan: CT scan of the head suspicious for a subacute infarction in the right occipital and parietal lobes in the distribution of the right posterior cerebral artery. Patient evaluated by [facility] teleneurology and was not a candidate for TPA and recommended further workup with MRI. EKG reviewed which showed normal sinus rhythm without any evidence of ischemic changes. Continues to have persistent diminished strength on left side of the face and upper and lower extremities. Patient received loading dose of aspirin in the ED. given her anemia with +ve FOBT, will hold off on ASA for now A1c 5.8 start statin MRI brain, echocardiogram, carotid dopplers PT/OT consult (5) Hypertension Current Visit: Yes Status: Chronic Assessment and Plan: holding meds to allow for permissive hypertension (6) DVT prophylaxis Current Visit: Yes Status: Acute Assessment and Plan: EPCD - Time Spent with Patient Total time spent is greater than 50% in coordination of care (as documented) at patient's floor/unit and/or counseling patient: 25 - 35 minutes Plan of Care Discussed with: nurse Internal Medicine: Result - Labs CBC & Chem 7: 07/29/18 05:16 07/29/18 05:16 Labs: Short CBC 07/28/18 07/29/18 Range/Units 17:42 05:16 WBC 7.8 5.9 (4.3-11.1) K/mcL Hgb 8.3 L 7.5 L (11.5-15.4) g/dL Hct 30.0 L 27.9 L (35.3-44.9) % Plt Count 365 357 (140-400) K/mcL BMP 07/28/18 07/29/18 17:42 05:16 Sodium 138 141 Potassium 3.7 3.8 Chloride 107 105 Carbon Dioxide 25 28 BUN 12 9 Creatinine 0.55 L 0.58 L Glucose 115 H 89 Calcium 9.6 9.2 Cardiac Enzymes 07/28/18 07/29/18 Range/Units 17:42 05:16 Troponin I < 0.03 < 0.03 (< 0.04) ng/mL Liver Function 07/29/18 Range/Units 05:16 Total Bilirubin 0.3 (0.3-1.0) mg/dL AST 10 L (13-39) Units/L ALT 6 L (7-52) Units/L Alkaline Phosphatase 120 H (34-104) Units/L Albumin 3.0 L (3.5-5.7) g/dL Urine 07/29/18 Range/Units 01:23 Urine Color Yellow (Yellow) Urine Clarity Cloudy A (Clear) Urine pH 7.0 (5.0-8.0) pH Units Ur Specific [place] < 1.005 L (1.010-1.025) Urine Protein Negative (Neg-Trace) mg/dL Urine Glucose (UA) Normal (Normal) mg/dL - ABG Interpretation ABG results: PT/INR, D-dimer PT 13.1 Seconds (9.4-12.1) H 07/29/18 05:16 - Impressions Impressions Head CT 07/28/18 17:45 IMPRESSION: 1. Suspicion for a subacute infarction in the right occipital and parietal lobes in the distribution of the right posterior cerebral artery. No associated intracranial hemorrhage. Consider MRI. Critical results were called by Dr. Ayden Dimas MD to Tonia Nunez on 07/28/2018 at 18:18. 2. Moderate to severe white matter disease most likely due to chronic small vessel ischemia. Underlying punctate areas of ischemia would be difficult to exclude. 3. Suspected old lacunar infarcts in the bilateral basal ganglia. D/ / Ayden Dimas MD / Ayden Dimas MD Interpreting Provider: Ayden Dimas MD Echocardiogram 07/29/18 21:38 Impressions: LVEF 65%. Mild left ventricular diastolic dysfunction. Normal right ventricular structure and function. No significant valvular dysfunction. No evidence of pulmonary hypertension. Non-diagnostic PFO with agitated saline contrast. Left Ventricular Wall Motion: Rest Echo Findings All wall segments showed normal motion. Findings: Study Quality * Technically adequate exam. ECG Findings * Normal sinus rhythm. Left Ventricle * LVEF 65%. * Normal LV chamber size and systolic function. * Mild concentric left ventricular hypertrophy. * Mild left ventricular diastolic dysfunction. Right Ventricle * Normal right ventricular structure and function. Left Atrium * Normal left atrial size. Right Atrium * Normal right atrial size. Interatrial Septum * Non-diagnostic PFO with agitated saline contrast. Aortic Valve * Trileaflet aortic valve with normal function. * No aortic stenosis. * No aortic regurgitation. Mitral Valve * Mild mitral annular calcification. * No mitral stenosis. * No mitral regurgitation. Tricuspid Valve * Normal tricuspid valve structure. * No tricuspid stenosis. * No tricuspid regurgitation. * Unable to estimate RVSP due to lack of TR jet. * No evidence of pulmonary hypertension. * Estimated RA pressure is 3 mmHg. Pulmonic Valve * Pulmonic valve is not well visualized. * No pulmonic stenosis. * No pulmonic regurgitation. Aorta * Normally sized aortic root. Pericardium * The pericardium appears normal. IVC * The IVC is not dilated. * > 50% respiratory change Consult Discharge Plan - Plan Referrals: Larry Martínez MD [Primary Care Provider] - (2) Anemia Qualifiers: Anemia type: unspecified type Qualified Code(s): D64.9 - Anemia, unspecified (3) Acute cystitis Qualifiers: Hematuria presence: without hematuria Qualified Code(s): N30.00 - Acute cystitis without hematuria (5) Hypertension Qualifiers: Hypertension type: essential hypertension Qualified Code(s): I10 - Essential (primary) hypertension
[2018-07-29] MEDS ORDERED: Aspirin 81 MG TAB.CHEW PO SCH (13:15)
--- NOTE | 2018-07-29 13:50 | Gastroenterology Consult Note ---
<Ayden Broussard - Last Filed: 07/29/18 13:48> Date of Encounter: 07/29/18 Time of Encounter: 10:00 - Assessment and plan (1) Anemia Status: Acute Assessment and plan: On admission Hgb 8.3 and this AM Hgb 7.5. Fecal occult blood test positive. Continue to monitor CBC and transfuse PRBC as needed. Plan for EGD and colonoscopy tomorrow pending Neurology clearance. Clear liquid diet today, no red or purple. NPO at midnight. If unable tolerate NuLytely please use MiraLAX prep. If not clear by 6 AM, give 2 tap water enemas. Qualifiers: Anemia type: unspecified type Qualified Code(s): D64.9 - Anemia, unspecified (2) Stroke-like symptoms Status: Acute Assessment and plan: Management per neurology and primary team. (3) GI bleed Status: Suspected Assessment and plan: As above. Qualifiers: GI bleed type/associated pathology: unspecified gastrointestinal hemorrhage type Qualified Code(s): K92.2 - Gastrointestinal hemorrhage, unspecified - Time Spent With Patient Total time spent is greater than 50% in coordination of care (as documented) at patient's floor/unit and/or counseling patient: GI History of Present Illness - Data of Consult Patient: new to practice Consult date: 07/29/18 Requesting Physician: Will Villarreal MD - Consult Narrative Reason for consult: GI bleed History of present illness: Ms. Ferguson is a 72 year old female with PMHx of HTN, COPD, sleep apnea, TIA who presented with three-day history of dizziness and an acute onset of left-sided paresthesias in the face, arm and leg which began at approximately 10 AM on the morning of 07/28/18. She also reports fatigue and shortness of breath with exertion that started 3 days ago. She denies fever, chills, chest pain, abdominal pain, melena, or hematochezia. CT head showed suspicion for a subacute infarction in the right occipital and parietal lobes in the distribution of the right posterior cerebral artery, additionally, there is moderate to severe white matter disease most likely due to chronic small vessel ischemia but underlying punctate areas of ischemia would be difficult to exclude. We were consulted to evaluate her anemia. On admission Hgb 8.3 and this AM Hgb 7.5. Fecal occult blood test positive. Procedures: EGD 11/21/2010 Dr. Hill: Duodenitis. Colonoscopy 11/21/2010 Dr. Hill: Diverticulosis, internal hemorrhoids, two 7 mm tubular adenomas, repeat 5 years. NSAIDs: None Anticoagulation: None Past Med Surg Social Fam HX - Past Medical History Medical history: hypertension, TIA Psychiatric history: no psych history - Past Surgical History Surgical History: appendectomy, cholecystectomy, hip replacement, sinus surgery Additional surgical history: ORAL SURGERY UNSPECIFICED. GASTRIC BYPASS 1992 - Social History Smoking Status: Never smoker Smokeless Tobacco Status: No Alcohol use: none Drug use: none - Gastrointestinal Gastrointestinal: Present: as per HPI - Constitutional Constitutional: as per HPI - EENT Eyes: as per HPI Ears: Present: as per HPI Nose, mouth and throat: Present: as per HPI - Cardiovascular Cardiovascular ROS: Present: as per HPI - Respiratory Respiratory IM: Present: as per HPI - Genitourinary Genitourinary: Absent: change in color, Urinary frequency - Neurological ROS Neurological GI: Present: as per HPI - Hematologic/Lymphatic Hematologic/Lymphatic pediatric: Present: as per HPI - Musculoskeletal Musculoskeletal ROS GI: Present: as per HPI - Integumentary Integumentary GI: Present: as per HPI - Psychiatric ROS Psychiatric GI: Present: as per HPI - Endocrine Endocrine IM: Present: as per HPI - Constitutional Vitals: Temp Pulse Resp BP Pulse Ox 98.3 F 67 18 141/74 97 07/29/18 09:44 07/29/18 11:44 07/29/18 11:44 07/29/18 11:44 07/29/18 11:44 General appearance: Present: cooperative, A&O X 3, no acute distress, answers questions appropriately - Head Head exam: Present: atraumatic, normocephalic - Eye Eye exam: Present: normal appearance, sclera anicteric - ENT ENT exam: Present: mucous membranes dry - Neck Neck exam general surgery: Present: normal inspection, trachea midline - Respiratory Respiratory exam: Present: decreased breath sounds, CTAB. Absent: rales, rhonchi - Cardiovascular Cardiovascular exam: Present: RRR, +S1, +S2 - GI/Abdominal GI/Abdominal exam: Present: soft, no peritoneal signs. Absent: distended, firm, guarding, tenderness - Rectal Rectal exam: Present: deferred - Extremities Exam Extremities exam: Present: warm - Neurological Exam Neurological exam: Present: no focal deficits - Psychiatric Psychiatric exam: Present: normal affect, normal mood - Skin Skin exam: Present: dry, intact, normal color, warm Results - Labs CBC & Chem 7: 07/29/18 05:16 07/29/18 05:16 Labs: Last Result 07/29/18 07/29/18 05:16 05:16 Calcium 9.2 Iron 54 % Saturation 17 Transferrin 224 Troponin I < 0.03 Triglycerides 67 Entire Visit 07/29/18 07/29/18 07/29/18 05:16 05:16 05:16 Hgb 7.5 L Hct 27.9 L PT 13.1 H Total Bilirubin 0.3 AST 10 L ALT 6 L - ABG ABG results: PT/INR, D-dimer PT 13.1 Seconds (9.4-12.1) H 07/29/18 05:16 - Impressions Impressions Head CT 07/28/18 17:45 IMPRESSION: 1. Suspicion for a subacute infarction in the right occipital and parietal lobes in the distribution of the right posterior cerebral artery. No associated intracranial hemorrhage. Consider MRI. Critical results were called by Dr. Ayden Dimas MD to Tonia Nunez on 07/28/2018 at 18:18. 2. Moderate to severe white matter disease most likely due to chronic small vessel ischemia. Underlying punctate areas of ischemia would be difficult to exclude. 3. Suspected old lacunar infarcts in the bilateral basal ganglia. D/ / Ayden Dimas MD / Ayden Dimas MD Interpreting Provider: Ayden Dimas MD Brain MRI 07/29/18 12:00 IMPRESSION: 1. Motion partially limits evaluation. 2. No acute intracranial abnormality. No acute infarct. 3. Mild to moderate chronic microvascular ischemic changes. 4. Bilateral mastoid effusions. D/ / Laci Harding MD / Laci Harding MD Interpreting Provider: Laci Harding MD Echocardiogram 07/29/18 21:38 Impressions: LVEF 65%. Mild left ventricular diastolic dysfunction. Normal right ventricular structure and function. No significant valvular dysfunction. No evidence of pulmonary hypertension. Non-diagnostic PFO with agitated saline contrast. Left Ventricular Wall Motion: Rest Echo Findings All wall segments showed normal motion. Findings: Study Quality * Technically adequate exam. ECG Findings * Normal sinus rhythm. Left Ventricle * LVEF 65%. * Normal LV chamber size and systolic function. * Mild concentric left ventricular hypertrophy. * Mild left ventricular diastolic dysfunction. Right Ventricle * Normal right ventricular structure and function. Left Atrium * Normal left atrial size. Right Atrium * Normal right atrial size. Interatrial Septum * Non-diagnostic PFO with agitated saline contrast. Aortic Valve * Trileaflet aortic valve with normal function. * No aortic stenosis. * No aortic regurgitation. Mitral Valve * Mild mitral annular calcification. * No mitral stenosis. * No mitral regurgitation. Tricuspid Valve * Normal tricuspid valve structure. * No tricuspid stenosis. * No tricuspid regurgitation. * Unable to estimate RVSP due to lack of TR jet. * No evidence of pulmonary hypertension. * Estimated RA pressure is 3 mmHg. Pulmonic Valve * Pulmonic valve is not well visualized. * No pulmonic stenosis. * No pulmonic regurgitation. Aorta * Normally sized aortic root. Pericardium * The pericardium appears normal. IVC * The IVC is not dilated. * > 50% respiratory change Consult Discharge Plan - Plan Instructions: Cephalexin (By mouth), Aspirin (By mouth), Atorvastatin (By mouth), Chronic Hypertension (DC), Anemia (GEN) Referrals: Larry Martínez MD [Primary Care Provider] - (Please call and make appt for 5-7 days after discharge.) Prescriptions: Aspirin Enteric Coated [Aspirin EC] 81 mg PO DAILY #30 tablet. Ferrous Sulfate 325 mg PO BID #60 tablet Atorvastatin [Lipitor] 40 mg PO HS #30 tablet <Car Freire - Last Filed: 08/04/18 06:26> Date of Encounter: 07/29/18 - Time Spent With Patient Total time spent is greater than 50% in coordination of care (as documented) at patient's floor/unit and/or counseling patient: GI History of Present Illness - Data of Consult Requesting Physician: Will Villarreal MD - Consult Narrative History of present illness: Ms. Ferguson is a 72 year old female - Constitutional Vitals: Temp Pulse Resp BP Pulse Ox 98.3 F 73 16 159/90 94 07/31/18 07:25 07/31/18 07:25 07/31/18 07:25 07/31/18 07:25 07/31/18 07:25 Results - Labs CBC & Chem 7: 07/31/18 04:50 07/29/18 05:16 - ABG ABG results: PT/INR, D-dimer PT 13.1 Seconds (9.4-12.1) H 07/29/18 05:16 - Attending Attestation 72 year old female presents with an acute CVA and severe anemia. Will await neurology consultation and then plan EGD and colonoscopy when cleared to address the severe anemia. Transfuse as needed. I have personally performed a face to face evaluation on this patient. I have r eviewed and agree with the care plan. History and Exam by me shows:
[2018-07-29 15:06] LABS: Hematocrit 30.1 % (35.3-44.9); Hemoglobin 8.2 g/dL (11.5-15.4)
[2018-07-29] MEDS: cefTRIAXone 1,000 MG in Water for inj. (sterile) 20 ML 10 ML IVP SCH (15:36)
[2018-07-29] MEDS ORDERED: SODIUM CHLORIDE/NAHCO3/KCL/PEG 4,000 ML SOLN.RECON PO ONE (17:00)
[2018-07-30] MEDS: Pantoprazole 40 MG VIAL IVP SCH ×2 (00:21→11:28)
[2018-07-30 05:00] LABS: Hematocrit 30.1 % (35.3-44.9); Hemoglobin 8.3 g/dL (11.5-15.4)
[2018-07-30] MEDS: D5% in 0.9% NACL 1,000 ML IVC SCH ×2 (06:55→11:57)
[2018-07-30] MEDS: cefTRIAXone 1,000 MG in Water for inj. (sterile) 20 ML 10 ML IVP SCH (08:24)
--- NOTE | 2018-07-30 09:52 | Anesthesia Evaluation PreOp ---
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 History: CVA (07/29/2018 admitted w/ L-sided weakness, expressive aphasia => STROKE alert upon admission), TIA (remote) Other Medical History: Thyroid Anesthesia History: No Prior Anesthetic Complications, Past Anesthesia (Appy, Fany, Hip replacement, Sinus surgery, Gastric Bypass 1992) Alcohol Use: none Drug use: none Medications and Allergies Gabapentin [Neurontin] 600 mg PO HS 07/29/18 [History] Non-Formulary Medication 07/29/18 [History] Oxycodone HCl/Acetaminophen [Percocet 5-325 mg Tablet] 1 each PO Q6H PRN 07/29/18 [History] Allergy/AdvReac Type Severity Reaction Status Date / Time azithromycin Allergy Rash Verified 07/29/18 14:22 [From Zithromax Z-Zackery] - Meds/Allergy Pre-op Review Medications Reviewed: Yes Allergies Reviewed: Yes Beta Blockers on Current Med List: No Anesthesia Results - Labs 07/30/18 04:37 07/29/18 05:[address] 07/28/18 17:45 IMPRESSION: 1. Suspicion for a subacute infarction in the right occipital and parietal lobes in the distribution of the right posterior cerebral artery. No associated intracranial hemorrhage. Consider MRI. Critical results were called by Dr. Ayden Dimas MD to Tonia Nunez on 07/28/2018 at 18:18. 2. Moderate to severe white matter disease most likely due to chronic small vessel ischemia. Underlying punctate areas of ischemia would be difficult to exclude. 3. Suspected old lacunar infarcts in the bilateral basal ganglia. D/ / Ayden Dimas MD / Ayden Dimas MD Interpreting Provider: Ayden Dimas MD Brain MRI 07/29/18 12:00 IMPRESSION: 1. Motion partially limits evaluation. 2. No acute intracranial abnormality. No acute infarct. 3. Mild to moderate chronic microvascular ischemic changes. 4. Bilateral mastoid effusions. D/ / Laci Harding MD / Laci Harding MD Interpreting Provider: Laci Harding MD Echocardiogram 07/29/18 21:38 Impressions: LVEF 65%. Mild left ventricular diastolic dysfunction. Normal right ventricular structure and function. No significant valvular dysfunction. No evidence of pulmonary hypertension. Non-diagnostic PFO with agitated saline contrast. Left Ventricular Wall Motion: Rest Echo Findings All wall segments showed normal motion. Findings: Study Quality * Technically adequate exam. ECG Findings * Normal sinus rhythm. Left Ventricle * LVEF 65%. * Normal LV chamber size and systolic function. * Mild concentric left ventricular hypertrophy. * Mild left ventricular diastolic dysfunction. Right Ventricle * Normal right ventricular structure and function. Left Atrium * Normal left atrial size. Right Atrium * Normal right atrial size. Interatrial Septum * Non-diagnostic PFO with agitated saline contrast. Aortic Valve * Trileaflet aortic valve with normal function. * No aortic stenosis. * No aortic regurgitation. Mitral Valve * Mild mitral annular calcification. * No mitral stenosis. * No mitral regurgitation. Tricuspid Valve * Normal tricuspid valve structure. * No tricuspid stenosis. * No tricuspid regurgitation. * Unable to estimate RVSP due to lack of TR jet. * No evidence of pulmonary hypertension. * Estimated RA pressure is 3 mmHg. Pulmonic Valve * Pulmonic valve is not well visualized. * No pulmonic stenosis. * No pulmonic regurgitation. Aorta * Normally sized aortic root. Pericardium * The pericardium appears normal. IVC * The IVC is not dilated. * > 50% respiratory change Laboratory Results 07/29/18 07/30/18 05:42 04:37 Hgb 8.3 L Hct 30.1 L POC Glucose 85 - Imaging EKG: report reviewed (84bpm - Possible sinus rhythm Nonspecific intraventricular conduction delay Low voltage, precordial leads Artifact in lead(s) I II III aVR aVL aVF Electronically Signed On 07-29-2018 12:06:48 EDT by Mukul Stubbs) Anesthesia Exam Vital Signs Temp Pulse Resp BP Pulse Ox 07/30/18 07:37 97.8 F 68 15 166/85 90 07/30/18 05:37 97.7 F 70 16 155/93 99 06/21/19 05:13 69 18 155/93 06/21/19 01:55 153/92 07/30/18 01:25 161/94 07/30/18 01:17 70 18 159/104 07/30/18 01:04 98.2 F 75 16 171/92 97 07/30/18 00:55 159/104 07/30/18 00:25 171/92 07/30/18 00:19 164/97 07/29/18 21:42 98 F 74 16 179/110 97 07/29/18 21:33 75 18 179/110 07/29/18 17:44 98.6 F 72 18 150/82 07/29/18 16:40 73 18 178/106 94 07/29/18 13:44 98.6 F 77 18 148/78 07/29/18 11:44 67 18 141/74 97 Intake and Output 07/29/18 07/30/18 07/30/18 23:59 07:59 15:59 Intake Total 1610 / 1610 600 / 600 Output Total 1200 / 2225 1500 / 1500 Balance 410 / -615 -900 / -900 Intake: IV Fluids 1010 / 1010 D5% And 0.9% Nacl 1000 Ml 1,000 1000 / 1000 ML @ 55 mls/hr IVC .[id number] [facility] Rx#:[id number] Rocephin 1,000 MG In Water for inj. (sterile) 10 ML @ 600 mls/ hr IVP DAILY [facility] Rx#:[id number] Oral 600 / 600 600 / 600 Output: Catheter 1200 / 1600 1500 / 1500 Other: Stool Size Large Stool Consistency liquid soft Stool Characteristics Normal for Patient Stool Color Brown # Urine Diapers 1 # Bowel Movements 1 Weight 123.5 kg Blood Glucose* 74 91 Patient Weight 07/30/18 23:59 Weight 123.5 kg Height: 5'6" Weight: 272# BMI = 44 NPO (# of Hours): MNoc - HEENT Pupil (Motor): Pupils equal, EOMI Mallampati: II Teeth: Edentulous Oral Opening: Greater than 3 - COMMUNITY SPECIALIST LOC: Oriented COMMUNITY SPECIALIST Motor: Normal RUE, Normal LUE, Normal RLE, Normal LLE, Normal Face COMMUNITY SPECIALIST Sensory: Normal: RUE, LUE, RLE, LLE, Face - Cardiac Rhythm: Regular Murmur: None - Pulmonary Breath Sounds: bilateral Clear Respiratory Effort: Symmetrical Anesthesia Assess/Plan ASA Score: 3 (COPD, NAYELY, HTN, Thyroid, GERD,) Level of consciousness: Cooperative, Oriented, Tranquil Anesthetic Plan: MAC Monitoring Plan: Standard Monitors Recovery Plan: PACU Anes Supervising Prov Stmt: Pre-op completed in anticipation of procedure for 07/30/[address] Hill is now considering postponing procedure and scheduling Pt to have procedure at some other time; possibly as IV Med case without Anesthesia. Howard Ordoñez MD 07/30/2018 13:35
--- NOTE | 2018-07-30 10:25 | Neurology Progress Note ---
Date of Encounter: 07/30/18 Time of Encounter: 10:21 Assessment and Plan (1) Stroke-like symptoms Current Visit: Yes Status: Acute Clinically, the patient remained stable overnight. She denies any further neurological symptoms. She has had a carotid duplex scan showing bilateral nonstenotic plaque. TTE with EF 65% and mild LV dysfunction, without valvular dysfunction, no PHTN, no PFO. Yesterday she underwent MRI of the brain was unremarkable for an acute infarct. Therefore, the left-sided paresthesias are not caused by central neurologic process. Of note the MRI of the brain did reveal significant focal white matter hyperintensities on T2/flare concerning for a chronic demyelinating versus chronic ischemic changes. The patient denies ever having any diagnosis of MS in the past. Nonetheless this juncture recommend obtaining an MRI of the cervical spine to assess for possibility of cervical myelopathy. Otherwise, please continuous medical and supportive care, continue with daily ASA and Zocor, PT and OT. Neurology will sign off today. She will need follow-up in a few weeks with Dr. Montez for further outpatient evaluation and workup with concerns for a chronic demyelinating process. Subjective Principal diagnosis: stroke like symptoms Interval history: Patient seen in follow-up for stroke like symptoms. She was reporting left facial, arm and leg parasthesias and dizziness. Neuroimaging obtained and was negative for an acute infarct. However. MRI did reveal significant focal white matter T2/flare signal abnormalities concerning for chronic demyelinating versus a chronic ischemic changes. She was seen in follow-up and examined at the bedside today. She continues to report the left-sided paresthesias but notes that they have somewhat improved today. She denies any prior diagnosis of MS. I discussed with her today the need to obtain a MRI of the cervical spine to evaluate for possible cervical myelopathy. The patient is in agreement and verbalized understanding. She denies any further questions at this time. Objective - Constitutional Vitals: Temp Pulse Resp BP Pulse Ox 97.8 F 68 15 166/85 90 07/30/18 07:37 07/30/18 07:37 07/30/18 07:37 07/30/18 07:37 07/30/18 07:37 General appearance: Present: cooperative, A&O X 3, no acute distress, answers questions appropriately Exam: Examination: General Examination: *CONSTITUTIONAL: Alert and oriented x3, no acute distress *GENERAL APPEARANCE OF PATIENT obese elderly female, appears to have poor hygiene *EYES: pupils equal, round, reactive to light and accommodation, conjunctiva clear *CARDIOVASCULAR no peripheral pitting edema, distal temperature normal, dorsalis pedis pulses normal. see vitals Musculoskeletal: *GAIT AND STATION deferred *ASSESSMENT OF MUSCLE STRENGTH IN THE UPPER AND LOWER EXTREMITIES bilateral deltoid, bicep, heel sorter strength hip flexors ,anterior tibialis, dorsoflexion of the foot 4/5. Left Tricep strength remains 4/5 but is more diminished than the right *MUSCLE TONE IN THE UPPER AND LOWER EXTREMITIES normal. No abnormal movements, fasciculations or atrophy identified. Neurological: *ORIENTATION to person, situation, time and place *RECURRENT AND REMOTE MEMORY intact *ATTENTION AND CONCENTRATION are normal *LANGUAGE FUNCTION no significant aphasia or dysarthia was noted. *FUND OF KNOWLEDGE aware of current events, past history, vocabulary *MENTAL attention span and concentration normal. *CN II optic fundi were normal, no papilledema noted. *CN III,IV, PERRLA extraocular eye movements were full, no nystagmus and no ptosis noted. *CN V shows normal sensation and jaw opens symmetrically. *CN VII shows normal facial movement symmetrically, upper and lower bilaterally. *CN VIII shows no significant hearing loss on exam *CN IX,,X palate elevated symmetrically *CN XI normal strength in the sternocleidomastoid muscles, symmetrical shoulder shrugging. *CN XII tongue protruded in the midline, with normal strength and movement. *SENSORY EXAMINATION Diminished sensation persists to left face, arm and leg difficulty distinguishing light vs dull sensation on the LUE and left face. Difficulty with dull sensation in the bilateral lower extremities. *REFLEXES: DTR's are symmetrical b/l bicep, and tricep 1/4; DTR b/l patellar absent as are Achilles *CEREBELLAR TESTING mild dysmetria with left finger to nose. Mild left arm drift noted *PAIN LEVEL 0/10 Results - Laboratory Findings CBC and BMP: 07/30/18 04:37 07/29/18 05:16 Abnormal lab findings: Abnormal lab results RBC 3.47 M/mcL (3.82-4.97) L 07/29/18 05:16 Hgb 8.3 g/dL (11.5-15.4) L 07/30/18 04:37 Hct 30.1 % (35.3-44.9) L 07/30/18 04:37 MCV 80.4 fL (83.0-100.0) L 07/29/18 05:16 MCH 21.6 pg (28.0-33.3) L 07/29/18 05:16 MCHC 26.9 g/dL (31.6-35.5) L 07/29/18 05:16 RDW 18.6 % (11.5-14.5) H 07/29/18 05:16 MPV 8.9 fL (9.4-12.4) L 07/29/18 05:16 PT 13.1 Seconds (9.4-12.1) H 07/29/18 05:16 0.58 mg/dL (0.60-1.20) L 07/29/18 05:16 Glucose 115 mg/dL (70-105) H 07/28/18 17:42 POC Glucose 131 mg/dL (70-99) H 07/28/18 17:29 5.8 % (-5.6) H 07/29/18 05:16 AST 10 Units/L (13-39) L 07/29/18 05:16 ALT 6 Units/L (7-52) L 07/29/18 05:16 120 Units/L (34-104) H 07/29/18 05:16 3.0 g/dL (3.5-5.7) L 07/29/18 05:16 0.9 (1.1-2.2) L 07/29/18 05:16 LDL Cholesterol [place] 49 mg/dL (75-193) L 07/29/18 05:16 22 mg/dL (40-59) L 07/29/18 05:16 Cloudy (Clear) A 07/29/18 01:23 Ur Specific [place] < 1.005 (1.010-1.025) L 07/29/18 01:23 Positive (Negative) A 07/29/18 01:23 Ur Leukocyte Esterase Large (Negative) H 07/29/18 01:23 30-50 per hpf (0-3) H 07/29/18 01:23 Many per hpf (None-Few) H 07/29/18 01:23 Ur Culture Indicated? YES (NO) A 07/29/18 01:23 Stool Occult Bld Scrn Positive (Negative) A 07/28/18 19:56 Consult Discharge Plan - Plan Referrals: Larry Martínez MD [Primary Care Provider] -
[2018-07-30] MEDS ORDERED: *HR* LORazepam 2 MG/ML VIAL IVP STA (12:29)
--- NOTE | 2018-07-30 14:01 | Internal Med Progress Note ---
Hospitalist Progress Note - Encounter Date of Encounter: 07/30/18 Time of Encounter: 12:00 - Subjective Interval History: Still has residual left-sided weakness but not as prominent as yesterday. No fever overnight - Exam Vitals: Temp Pulse Resp BP Pulse Ox 97.8 F 68 15 166/85 90 07/30/18 07:37 07/30/18 07:37 07/30/18 07:37 07/30/18 07:37 07/30/18 07:37 Exam: General: Alert and oriented 3 lying in bed in no acute distress HEENT:EOMI, pupils equal, round and reactive. Cardiovascular:Normal S1 & S2, no rubs, murmurs or gallops. No JVD. Pulse regular. Lungs:Normal breath sounds, no wheezes or crackles. Abdomen:Soft, non-tender, no rigidity. Extremities:No deformity, no edema or tenderness, no joint swelling or clubbing. Neurological:cranial nerves II through XII intact; mild left-sided pronator drift and L UE/LE power 4+/5. 5/5 in R UE/LE. No dysmetria. Unable to appreciate any significant sensory loss. - Assessment and Plan (1) GI bleed Current Visit: Yes Status: Suspected Assessment and Plan: Patient presenting with microcytic anemia with a hemoglobin of 8.3 and MCV of 78.7. Hemoccult testing positive per ED assessment. Last hemoglobin assessment in our records was in 2014 with a hemoglobin of 10.0. Has had previous colonoscopy/EGD several years back which is not in our records. She states the findings were benign at that time. H&H stable around 8.2-3 Appreciate GI input, for EGD/colonoscopy today. Continue PPI (2) Anemia Current Visit: Yes Status: Chronic Assessment and Plan: as above iron profile unremarkable (3) Acute cystitis Current Visit: Yes Status: Acute Assessment and Plan: Endorses intermittent dysuria and urinary frequency with urinalysis positive for nitrite as well as leukocyte esterase. continue IV Rocephin (D2) and follow-up on urine culture. Currently growing GNR (4) Stroke-like symptoms Current Visit: Yes Status: Acute Assessment and Plan: CT scan of the head suspicious for a subacute infarction in the right occipital and parietal lobes in the distribution of the right posterior cerebral artery. Patient evaluated by [facility] teleneurology and was not a candidate for TPA EKG reviewed which showed normal sinus rhythm without any evidence of ischemic changes. Continues to have persistent diminished strength on left side of the face and upper and lower extremities. Patient received loading dose of aspirin in the ED. given her anemia with +ve FOBT, will hold off on ASA for now until GI workup is completed A1c 5.8 started on statin, continue MRI -ve for infarct but ?some changes consistent with MS Carotid Doppler: probable nonstenotic plaques, Echocardiogram: non-diagnostic for PFO for MRI C-spine discussed with Neurology, for outpatient follow up pt adamantly declines even a consideration for ECF placement (5) Hypertension Current Visit: Yes Status: Chronic Assessment and Plan: restart home meds once reconciled (6) DVT prophylaxis Current Visit: Yes Status: Acute Assessment and Plan: Intermittent pneumatic compression devices - Time Spent with Patient Total time spent is greater than 50% in coordination of care (as documented) at patient's floor/unit and/or counseling patient: 25 - 35 minutes Plan of Care Discussed with: patient (discussed with Neurology) Internal Medicine: Result - Labs CBC & Chem 7: 07/30/18 04:37 07/29/18 05:16 Labs: Short CBC 07/29/18 07/30/18 Range/Units 14:41 04:37 Hgb 8.2 L 8.3 L (11.5-15.4) g/dL Hct 30.1 L 30.1 L (35.3-44.9) % - ABG Interpretation ABG results: PT/INR, D-dimer PT 13.1 Seconds (9.4-12.1) H 07/29/18 05:16 Consult Discharge Plan - Plan Referrals: Larry Martínez MD [Primary Care Provider] - Prescriptions: Atorvastatin [Lipitor] 40 mg PO HS #30 tablet (1) GI bleed Qualifiers: GI bleed type/associated pathology: unspecified gastrointestinal hemorrhage type Qualified Code(s): K92.2 - Gastrointestinal hemorrhage, unspecified (2) Anemia Qualifiers: Anemia type: unspecified type Qualified Code(s): D64.9 - Anemia, unspecified (3) Acute cystitis Qualifiers: Hematuria presence: without hematuria Qualified Code(s): N30.00 - Acute cy stitis without hematuria (5) Hypertension Qualifiers: Hypertension type: essential hypertension Qualified Code(s): I10 - Essential (primary) hypertension
--- NOTE | 2018-07-30 15:53 | Pre-Sedation Evaluation ---
Pre-sedation evaluation - Pre-sedation checklist Date of procedure: 07/30/18 Procedure: EGD/Colon Recent Vitals: Last Vital Signs Temp 97.8 F 07/30/18 07:37 Pulse 68 07/30/18 07:37 Resp 15 07/30/18 07:37 BP 166/85 07/30/18 07:37 Pulse Ox 90 07/30/18 07:37 ASA Classification *see protocol: CLASS III-Severe systemic disease
[2018-07-30] MEDS ORDERED: Tetracaine/Benzocaine/Butamben 1 SPRAY AEROSOL MM ONE (15:54)
[2018-07-30] MEDS ORDERED: *HR* FentaNYL (PF) 100 MCG/2 ML VIAL IVP ONE (15:54)
[2018-07-30] MEDS ORDERED: Simethicone 40 MG/0.6 ML MLS IR ONE (15:54)
[2018-07-30] MEDS ORDERED: *HR* Midazolam HCl 5 MG/5 ML VIAL IVP ONE ×2 (15:54→15:55)
[2018-07-30] MEDS ORDERED: *HR* FentaNYL (PF) 100 MCG/2 ML VIAL ONE (15:55)
[2018-07-30] MEDS: Nystatin POWDER 30 GM BOTTLE TP SCH (20:04)
[2018-07-31] MEDS: Pantoprazole 40 MG VIAL IVP SCH ×2 (00:24→11:28)
[2018-07-31 05:43] LABS: Hematocrit 30.5 % (35.3-44.9); Hemoglobin 8.3 g/dL (11.5-15.4)
[2018-07-31 07:31] VITALS: BP 159/90
[2018-07-31] MEDS: cefTRIAXone 1,000 MG in Water for inj. (sterile) 20 ML 10 ML IVP SCH (08:13)
[2018-07-31] MEDS: Nystatin POWDER 30 GM BOTTLE TP SCH (08:20)
--- NOTE | 2018-07-31 09:39 | Discharge Summary ---
- NOTES TO OUTPATIENT PROVIDER Notes to Outpatient Provider: Follow up with Neurology for possible EMG/NCV. She will also need to see spine surgery if she desires for cervical spinal canal stenosis. Orders not resulted at time of discharge: Pending orders 07/30/18 17:19 Surgical Pathology [PTH] Routine Date of Encounter: 07/31/18 Time of Encounter: 07:30 - Discharge Diagnosis (1) GI bleed Priority: Secondary Status: Ruled-out Qualifiers: GI bleed type/associated pathology: unspecified gastrointestinal hemorrhage type Qualified Code(s): K92.2 - Gastrointestinal hemorrhage, unspecified (2) Anemia Priority: Primary Status: Chronic Qualifiers: Anemia type: unspecified type Qualified Code(s): D64.9 - Anemia, unspecified (3) Acute cystitis Priority: Secondary Status: Acute Qualifiers: Hematuria presence: without hematuria Qualified Code(s): N30.00 - Acute cystitis without hematuria (4) Stroke-like symptoms Priority: Secondary Status: Acute (5) Hypertension Priority: Secondary Status: Chronic Qualifiers: Hypertension type: essential hypertension Qualified Code(s): I10 - Essential (primary) hypertension (6) DVT prophylaxis Priority: Secondary Status: Acute Hospital course: Ms. Ferguson is a 72 year old female with COPD on 2L O2, HTN, TIA, hypothyroidism, history of gastric bypass surgery, was admitted for ?L sided weakness and anemia. MRI -ve for infarct, MRI C-spine showed multiple cervical DJD with cervical spinal canal stenosis. Carotid doppler with non-stenotic plaques and Echocardiogram non-diagnostic for PFO. For her anemia, she was noted to be iron deficient with FOBT +ve hence underwent EGD/colonoscopy on 07/30. EGD did not show any anastomotic ulcer and colonoscopy was only significant for pancolonic diverticulosis and nonbleeding 3 sessile polyps. She was started on ASA, statin as well as iron supplements. Given her weakness, she was recommended to be consider ECF placement for rehab but she wanted to spend more time with her who has terminal diagnosis at home despite understanding the risk of fall and further injuries that it can lead to. After speaking to [facility], the decision was made to send her home with home health for nursing and PT. She will also be treated for 7 days of abx for UTI. Discharge discussed with: patient, nurse, social work, case management, absence management consultant - Time Spent with Patient Total time spent providing and/or coordinating discharge services: 32 mins - Discharge Medications Prescriptions: New Atorvastatin [Lipitor] 40 mg PO HS #30 tablet Aspirin Enteric Coated [Aspirin EC] 81 mg PO DAILY #30 tablet. Ferrous Sulfate 325 mg PO BID #60 tablet cephALEXin [Keflex] 500 mg PO BID 4 Days #8 capsule Continued Oxycodone HCl/Acetaminophen [Percocet 5-325 mg Tablet] 1 each PO Q6H PRN PRN Reason: Pain Gabapentin [Neurontin] 600 mg PO HS Non-Formulary Medication Home Medications: Gabapentin [Neurontin] 600 mg PO HS 07/29/18 [History] Non-Formulary Medication 07/29/18 [History] Oxycodone HCl/Acetaminophen [Percocet 5-325 mg Tablet] 1 each PO Q6H PRN 07/29/18 [History] Atorvastatin [Lipitor] 40 mg PO HS #30 tablet 07/30/18 [Rx] Aspirin Enteric Coated [Aspirin EC] 81 mg PO DAILY #30 tablet. 07/31/18 [Rx] Ferrous Sulfate 325 mg PO BID #60 tablet 07/31/18 [Rx] cephALEXin [Keflex] 500 mg PO BID 4 Days #8 capsule 07/31/18 [Rx] Allergies/Adverse Reactions: Allergy/AdvReac Type Severity Reaction Status Date / Time azithromycin Allergy Rash Verified 07/29/18 14:22 [From Zithromax Z-Zackery] Date of admission: 07/29/18 00:05 Primary care physician: Larry Martínez MD Consults: 07/28/18 21:35 Consult to Neurology [CONS] Routine Consulting Provider: Neu[facility] Reason for Consult: COncern for CVA Call Completed: No Consult to Occupational Therapy [CONS] Routine Comment: Evaluate, develop and implement POC Reason for Consult: Stroke like Sx Does patient have active BEDREST order?: No Is patient medically & hemodynamically stable?: Yes Consult to Physical Therapy [CONS] Routine Comment: Evaluate, develop and implement POC Reason for Consult: Stroke like Sx Does patient have active BEDREST order?: No Is patient medically & hemodynamically stable?: Yes 07/29/18 00:03 Consult to Gastroenterology [CONS] Routine Consulting Provider: [facility] Reason for Consult: Concern for GI bleed Call Completed: No - Constitutional Vitals: Temp Pulse Resp BP Pulse Ox 98.3 F 73 16 159/90 94 07/31/18 07:25 07/31/18 07:25 07/31/18 07:25 07/31/18 07:25 07/31/18 07:25 Exam: General: Alert and oriented 3 lying in bed in no acute distress HEENT:EOMI, pupils equal, round and reactive. Cardiovascular:Normal S1 & S2, no rubs, murmurs or gallops. No JVD. Pulse regular. Lungs:Normal breath sounds, no wheezes or crackles. Abdomen:Soft, non-tender, no rigidity. Extremities:No deformity, no edema or tenderness, no joint swelling or clubbing. Neurological:cranial nerves II through XII intact; mild left-sided pronator drift and L UE/LE power 4+/5. 5/5 in R UE/LE. No dysmetria. Unable to appreciate any significant sensory loss. - Patient Status Disposition: Home Health Service Condition: Good Overall status at discharge: patient is progressing back to baseline - Discharge Instructions Instructions: Anemia (GEN), Chronic Hypertension (DC) Follow Up With: Larry Martínez MD [Primary Care Provider] - - Diet and Activity Activity: as per physical therapy Diet: regular diet - VTE Documentation of Mechanical Device: Intermittent pneumatic compression device
--- NOTE | 2018-07-31 09:46 | Physician Discharge Referral ---
Home Health/Hosp Referral Info Transfer to: Home Health Provider in Charge Post Discharge: PCP - Diagnosis (1) Anemia Priority: Primary Status: Chronic (2) Stroke-like symptoms Priority: Secondary Status: Acute (3) GI bleed Priority: Secondary Status: Ruled-out (4) Acute cystitis Priority: Secondary Status: Acute (5) Hypertension Priority: Secondary Status: Chronic (6) DVT prophylaxis Priority: Secondary Status: Acute - Respiratory Orders Oxygen / L per min (2L continuous) Smoking Cessation: Smoking cessation has been advised. For more information, call the [place] Tobacco Quit Line at 8-782-FFCP-NOW. - Diet/Nutrition Diet/Nutrition Orders: Regular - Services Needed Following services are medically necessary services: Nursing, Physical Therapy - Transfer Medications Prescriptions: Aspirin Enteric Coated [Aspirin EC] 81 mg PO DAILY #30 tablet. Ferrous Sulfate 325 mg PO BID #60 tablet cephALEXin [Keflex] 500 mg PO BID 4 Days #8 capsule Atorvastatin [Lipitor] 40 mg PO HS #30 tablet Home Medications: Gabapentin [Neurontin] 600 mg PO HS 07/29/18 [History] Non-Formulary Medication 07/29/18 [History] Oxycodone HCl/Acetaminophen [Percocet 5-325 mg Tablet] 1 each PO Q6H PRN 07/29/18 [History] Atorvastatin [Lipitor] 40 mg PO HS #30 tablet 07/30/18 [Rx] Aspirin Enteric Coated [Aspirin EC] 81 mg PO DAILY #30 tablet. 07/31/18 [Rx] Ferrous Sulfate 325 mg PO BID #60 tablet 07/31/18 [Rx] cephALEXin [Keflex] 500 mg PO BID 4 Days #8 capsule 07/31/18 [Rx] Allergies/Adverse Reactions: Allergy/AdvReac Type Severity Reaction Status Date / Time azithromycin Allergy Rash Verified 07/29/18 14:22 [From Zithromax Z-Zackery] Certification: Further, I certify that my clinical findings support that this patient is homebound (i.e. absences from home require considerable and taxing effort and are for medical reasons or shinto services or infrequently or short duration when for other reasons) because: Homebound Reason: Patient requires assistance of a person or device to safely leave home Attestation: My signature below is to certify that this patient is under my care and that I, or nurse practitioner, or a physician's supply chain assistant working with me, has a face-to -face encounter with this patient.
== END 2018-07-31 16:30 | disposition home health service (06) | DRG 392 ==
LOC: 2NENU 17:24 → EMEROOARM 17:24 → 2NENU 22:02 → SUATTDRO 07-29 00:05
PROVIDERS: ADMIT Internal Medicine; ATTEND Internal Medicine

== ENCOUNTER 2019-02-10 16:17 | Inpatient (IN) ==
[2019-02-10] MEDS ORDERED: Isovue-370 500 ML BOTTLE IVP ONE ×2 (16:22→19:52)
[2019-02-10] MEDS ORDERED: Aspirin 325 MG TABLET PO ONE (16:23)
[2019-02-10 16:43] LABS: Basophils % 0.2 %; Eosinophils # 0.3 K/mcL (0.0-0.6); Eosinophils % 1.9 %; Hemoglobin 11.5 g/dL (11.5-15.4); Immature Granulocytes % 0.5 % (0-4); Lymphocytes # 1.3 K/mcL (0.6-4.6); Lymphocytes % 9.1 %; Mean Corpuscular HGB Conc 30.3 g/dL (31.6-35.5); Mean Corpuscular Hemoglobin 28.3 pg (28.0-33.3); Mean Corpuscular Volume 93.4 fL (83.0-100.0); Mean Platelet Volume 8.5 fL (9.4-12.4); Monocytes # 0.3 K/mcL (0.0-1.3); Monocytes % 2.3 %; Neutrophils # 12.2 K/mcL (1.6-8.9); Platelet Count 271 K/mcL (140-400); Red Blood Count 4.07 M/mcL (3.82-4.97); Red Cell Distribution Width 18.3 % (11.5-14.5); White Blood Count 14.1 K/mcL (4.3-11.1)
[2019-02-10 17:06] LABS: Blood Urea Nitrogen 11 mg/dL (8-23); Calcium 10.5 mg/dL (8.6-10.3); Carbon Dioxide 25 mEq/L (23-29); Chloride 100 mEq/L (98-107); Glucose 107 mg/dL (70-105); Osmolality,Calculated 278 (280-300); Potassium 4.2 mEq/L (3.5-5.1); Sodium 134 mEq/L (136-145); Troponin I < 0.03 ng/mL (< 0.04)
[2019-02-10 17:10] LABS: BUN/Creatinine Ratio 16 (6-26); eGFR For African Americans > 60 (> 60); eGFR For Non-African Americans > 60 (> 60)
[2019-02-10 18:23] LABS: INR 1.2; Prothrombin Time 13.6 Seconds (9.4-12.1)
[2019-02-10 18:41] LABS: Albumin 3.4 g/dL (3.5-5.7); Albumin/Globulin Ratio 0.9 (1.1-2.2); Bilirubin,Direct 0.1 mg/dL (0.0-0.2); Bilirubin,Indirect 0.3 mg/dL (0.0-1.0); Bilirubin,Total 0.4 mg/dL (0.3-1.0); Globulin 3.9 g/dL (2.4-3.5); Total Protein 7.3 g/dL (6.4-8.9)
[2019-02-10 18:51] LABS: Bilirubin,Urine Small (Negative); Blood,Urine Negative (Negative); Clarity,Urine Clear (Clear); Color,Urine Yellow (Yellow); Glucose,Urine (UA) Normal (Normal); Ketones,Urine Negative (Negative); Leukocyte Esterase,Urine Negative (Negative); Nitrite,Urine Negative (Negative); Protein,Urine Negative (Neg-Trace); Specific Gravity,Urine > 1.030 (1.010-1.025); Urobilinogen,Urine Normal (Normal)
[2019-02-10] MEDS: 0.9 % Sodium Chloride 1,000 ML IVC SCH ×2 (19:02→20:03)
[2019-02-10] MEDS ORDERED: Naloxone 0.4 MG/ML INJ IVP PRN (21:39)
[2019-02-10] MEDS ORDERED: Ondansetron ODT 4 MG TAB.RAPDIS SL PRN (21:44)
[2019-02-11] MEDS ORDERED: Ipratropium/Albuterol Neb 3 ML IH PRN (00:21)
[2019-02-11] MEDS ORDERED: Ipratropium/Albuterol Neb 3 ML ONE (00:22)
[2019-02-11 05:32] LABS: Basophils % 0.2 %; Eosinophils # 0.2 K/mcL (0.0-0.6); Eosinophils % 1.7 %; Hemoglobin 10.5 g/dL (11.5-15.4); Lymphocytes # 1.2 K/mcL (0.6-4.6); Lymphocytes % 9.2 %; Mean Corpuscular HGB Conc 30.9 g/dL (31.6-35.5); Mean Corpuscular Hemoglobin 28.6 pg (28.0-33.3); Mean Corpuscular Volume 92.6 fL (83.0-100.0); Mean Platelet Volume 9.2 fL (9.4-12.4); Monocytes # 0.4 K/mcL (0.0-1.3); Monocytes % 2.7 %; Neutrophils # 11.2 K/mcL (1.6-8.9); Platelet Count 260 K/mcL (140-400); Red Blood Count 3.67 M/mcL (3.82-4.97); Red Cell Distribution Width 18.5 % (11.5-14.5); Segmented Neutrophils % 85.2 %; White Blood Count 13.1 K/mcL (4.3-11.1)
[2019-02-11 05:40] LABS: BUN/Creatinine Ratio 19 (6-26); Blood Urea Nitrogen 11 mg/dL (8-23); Calcium 9.6 mg/dL (8.6-10.3); Carbon Dioxide 23 mEq/L (23-29); Chloride 105 mEq/L (98-107); Glucose 88 mg/dL (70-105); Osmolality,Calculated 275 (280-300); Sodium 133 mEq/L (136-145); eGFR For African Americans > 60 (> 60); eGFR For Non-African Americans > 60 (> 60)
[2019-02-11] MEDS ORDERED: Vancomycin 1,750 MG in 0.9 % Sodium Chloride 250 ML IVPB SCH (06:00)
[2019-02-11] MEDS: *HR* Heparin 5,000 UNIT/ML VIAL SQ SCH ×3 (06:13→17:42)
[2019-02-11 10:36] LABS: Adenovirus Not Detected (Not Detect); Coronavirus 229E Not Detected (Not Detect); Coronavirus HKU1 Not Detected (Not Detect); Coronavirus NL63 Not Detected (Not Detect); Coronavirus OC43 Not Detected (Not Detect); Human Metapneumovirus Not Detected (Not Detect)
[2019-02-11 10:37] LABS: Bordetella Pertussis Not Detected (Not Detect); Chlamydophila pneumoniae Not Detected (Not Detect); Human Rhinovirus/Enterovirus Not Detected (Not Detect); Influenza A Subtype 2009 H1 Not Detected (Not Detect); Influenza B Not Detected (Not Detect); Mycoplasma pneumoniae Not Detected (Not Detect); Parainfluenza Virus 1 Not Detected (Not Detect); Parainfluenza Virus 2 Not Detected (Not Detect); Parainfluenza Virus 3 Not Detected (Not Detect); Parainfluenza Virus 4 Not Detected (Not Detect); Respiratory Syncytial Virus Not Detected (Not Detect)
[2019-02-11 13:13] LABS: ABG Base Excess -1 mEq/L (-2 to 3); ABG HCO3 25 mEq/L (21-27); ABG Oxygen Saturation 97 % (95-98); ABG PCO2 43 mmHg (35-45); ABG PH 7.37 pH Units (7.32-7.45); ABG PO2 93 mmHg (85-104); ABG TCO2 26 mEq/L (20-26)
[2019-02-11] MEDS: Gabapentin 300 MG CAPSULE PO SCH (22:49)
[2019-02-11] MEDS: *HR* OxyCODONE/APAP 5/325 TABLET PO PRN (23:12)
[2019-02-12] MEDS: *HR* Heparin 5,000 UNIT/ML VIAL SQ SCH (05:58)
[2019-02-12 08:29] LABS: Basophils % 0.4 %; Eosinophils # 0.3 K/mcL (0.0-0.6); Eosinophils % 4.2 %; Hematocrit 34.1 % (35.3-44.9); Hemoglobin 10.4 g/dL (11.5-15.4); Immature Granulocytes % 0.9 % (0-4); Lymphocytes # 1.2 K/mcL (0.6-4.6); Mean Corpuscular HGB Conc 30.5 g/dL (31.6-35.5); Mean Corpuscular Hemoglobin 28.3 pg (28.0-33.3); Mean Corpuscular Volume 92.7 fL (83.0-100.0); Mean Platelet Volume 8.9 fL (9.4-12.4); Monocytes # 0.4 K/mcL (0.0-1.3); Monocytes % 4.4 %; Neutrophils # 6.1 K/mcL (1.6-8.9); Platelet Count 250 K/mcL (140-400); Red Blood Count 3.68 M/mcL (3.82-4.97); Red Cell Distribution Width 18.9 % (11.5-14.5); Segmented Neutrophils % 75.1 %; White Blood Count 8.1 K/mcL (4.3-11.1)
[2019-02-12 08:45] LABS: BUN/Creatinine Ratio 17 (6-26); Blood Urea Nitrogen 12 mg/dL (8-23); Calcium 9.9 mg/dL (8.6-10.3); Carbon Dioxide 24 mEq/L (23-29); Chloride 105 mEq/L (98-107); Glucose 102 mg/dL (70-105); Osmolality,Calculated 282 (280-300); Potassium 3.9 mEq/L (3.5-5.1); Sodium 136 mEq/L (136-145); eGFR For African Americans > 60 (> 60); eGFR For Non-African Americans > 60 (> 60)
[2019-02-12] MEDS: *HR* OxyCODONE/APAP 5/325 TABLET PO PRN ×2 (11:38→17:11)
[2019-02-12] MEDS ORDERED: *HR* Heparin 5,000 UNIT/ML VIAL IVP PRN (12:31)
[2019-02-12] MEDS ORDERED: *HR* Heparin 5,000 UNIT/ML VIAL IVP ONE (12:31)
[2019-02-12] MEDS ORDERED: Isovue-370 500 ML BOTTLE IVP ONE (13:02)
[2019-02-12 14:47] LABS: Hematocrit 34.4 % (35.3-44.9); Hemoglobin 10.4 g/dL (11.5-15.4); Mean Corpuscular HGB Conc 30.2 g/dL (31.6-35.5); Mean Corpuscular Hemoglobin 28.8 pg (28.0-33.3); Mean Corpuscular Volume 95.3 fL (83.0-100.0); Mean Platelet Volume 9.2 fL (9.4-12.4); Platelet Count 255 K/mcL (140-400); Red Blood Count 3.61 M/mcL (3.82-4.97); Red Cell Distribution Width 18.8 % (11.5-14.5); White Blood Count 8.4 K/mcL (4.3-11.1)
[2019-02-12 14:50] LABS: INR 1.1; Prothrombin Time 12.8 Seconds (9.4-12.1)
[2019-02-12] MEDS: Heparin 25,000 UNIT/250 ML D5W 25,000 UNIT/250 ML IV.SOLN IVC SCH (14:56)
[2019-02-12] MEDS: Doxycycline 100 MG in 0.9 % Sodium Chloride Mini Bag 100 ML IVPB SCH (17:12)
[2019-02-12] MEDS: Gabapentin 300 MG CAPSULE PO SCH (20:04)
[2019-02-13 05:16] LABS: Basophils % 0.4 %; Eosinophils # 0.4 K/mcL (0.0-0.6); Eosinophils % 5.2 %; Immature Granulocytes % 1.3 % (0-4); Lymphocytes # 1.6 K/mcL (0.6-4.6); Lymphocytes % 20.5 %; Mean Corpuscular HGB Conc 30.3 g/dL (31.6-35.5); Mean Corpuscular Hemoglobin 28.2 pg (28.0-33.3); Mean Platelet Volume 9.6 fL (9.4-12.4); Monocytes # 0.4 K/mcL (0.0-1.3); Monocytes % 4.8 %; Neutrophils # 5.2 K/mcL (1.6-8.9); Platelet Count 292 K/mcL (140-400); Red Blood Count 3.55 M/mcL (3.82-4.97); Red Cell Distribution Width 18.9 % (11.5-14.5); Segmented Neutrophils % 67.8 %; White Blood Count 7.7 K/mcL (4.3-11.1)
[2019-02-13] MEDS: *HR* Heparin 5,000 UNIT/ML VIAL IVP PRN ×2 (05:29→14:29)
[2019-02-13] MEDS: Doxycycline 100 MG in 0.9 % Sodium Chloride Mini Bag 100 ML IVPB SCH ×2 (05:29→18:02)
[2019-02-13] MEDS: Heparin 25,000 UNIT/250 ML D5W 25,000 UNIT/250 ML IV.SOLN IVC SCH ×2 (05:30→18:00)
[2019-02-13 05:32] LABS: BUN/Creatinine Ratio 19 (6-26); Blood Urea Nitrogen 13 mg/dL (8-23); Calcium 9.9 mg/dL (8.6-10.3); Carbon Dioxide 25 mEq/L (23-29); Chloride 105 mEq/L (98-107); Glucose 91 mg/dL (70-105); Osmolality,Calculated 280 (280-300); Sodium 135 mEq/L (136-145); eGFR For African Americans > 60 (> 60); eGFR For Non-African Americans > 60 (> 60)
[2019-02-13 06:44] LABS: Vancomycin,Trough 9 mcg/mL (5-10)
[2019-02-13] MEDS: *HR* OxyCODONE/APAP 5/325 TABLET PO PRN ×2 (12:32→23:18)
[2019-02-13] MEDS: Gabapentin 300 MG CAPSULE PO SCH (23:16)
[2019-02-14] MEDS: Heparin 25,000 UNIT/250 ML D5W 25,000 UNIT/250 ML IV.SOLN IVC SCH (05:14)
[2019-02-14 05:33] LABS: Basophils % 0.4 %; Eosinophils # 0.4 K/mcL (0.0-0.6); Eosinophils % 5.5 %; Hemoglobin 9.7 g/dL (11.5-15.4); Immature Granulocytes % 1.2 % (0-4); Lymphocytes # 1.5 K/mcL (0.6-4.6); Lymphocytes % 20.2 %; Mean Corpuscular HGB Conc 30.3 g/dL (31.6-35.5); Mean Corpuscular Hemoglobin 28.3 pg (28.0-33.3); Mean Corpuscular Volume 93.3 fL (83.0-100.0); Mean Platelet Volume 9.5 fL (9.4-12.4); Monocytes # 0.4 K/mcL (0.0-1.3); Monocytes % 5.3 %; Neutrophils # 4.9 K/mcL (1.6-8.9); Platelet Count 286 K/mcL (140-400); Red Blood Count 3.43 M/mcL (3.82-4.97); Segmented Neutrophils % 67.4 %; White Blood Count 7.3 K/mcL (4.3-11.1)
[2019-02-14] MEDS: Doxycycline 100 MG in 0.9 % Sodium Chloride Mini Bag 100 ML IVPB SCH ×2 (05:54→17:23)
[2019-02-14 05:58] LABS: BUN/Creatinine Ratio 18 (6-26); Blood Urea Nitrogen 13 mg/dL (8-23); Calcium 10.1 mg/dL (8.6-10.3); Carbon Dioxide 26 mEq/L (23-29); Chloride 104 mEq/L (98-107); Glucose 95 mg/dL (70-105); Osmolality,Calculated 284 (280-300); Sodium 137 mEq/L (136-145); eGFR For African Americans > 60 (> 60); eGFR For Non-African Americans > 60 (> 60)
[2019-02-14] MEDS ORDERED: Aminoglycoside Consult 1 EACH MC ONE (07:43)
[2019-02-14 10:11] LABS: Hemoglobin 10.3 g/dL (11.5-15.4)
[2019-02-14 14:16] LABS: INR 1.1; Prothrombin Time 12.5 Seconds (9.4-12.1)
[2019-02-14] MEDS: *HR* Enoxaparin 150 MG/ML SYRINGE SQ SCH (17:22)
[2019-02-14] MEDS ORDERED: Warfarin perPT PO PRN (18:00)
[2019-02-14] MEDS ORDERED: *HR* Warfarin 5 MG TABLET PO ONE (18:00)
[2019-02-14] MEDS: *HR* OxyCODONE/APAP 5/325 TABLET PO PRN (19:51)
[2019-02-14] MEDS: Gabapentin 300 MG CAPSULE PO SCH (19:51)
[2019-02-15] MEDS: Doxycycline 100 MG in 0.9 % Sodium Chloride Mini Bag 100 ML IVPB SCH ×2 (05:34→18:00)
[2019-02-15] MEDS: *HR* Enoxaparin 150 MG/ML SYRINGE SQ SCH ×2 (05:34→18:57)
[2019-02-15 06:23] LABS: Basophils % 0.4 %; Eosinophils # 0.3 K/mcL (0.0-0.6); Eosinophils % 4.6 %; Hematocrit 32.1 % (35.3-44.9); Hemoglobin 9.6 g/dL (11.5-15.4); Immature Granulocytes % 1.3 % (0-4); Lymphocytes # 1.4 K/mcL (0.6-4.6); Lymphocytes % 19.7 %; Mean Corpuscular HGB Conc 29.9 g/dL (31.6-35.5); Mean Corpuscular Hemoglobin 28.5 pg (28.0-33.3); Mean Corpuscular Volume 95.3 fL (83.0-100.0); Mean Platelet Volume 8.9 fL (9.4-12.4); Monocytes # 0.4 K/mcL (0.0-1.3); Monocytes % 5.1 %; Neutrophils # 4.8 K/mcL (1.6-8.9); Platelet Count 258 K/mcL (140-400); Red Blood Count 3.37 M/mcL (3.82-4.97); Segmented Neutrophils % 68.9 %; White Blood Count 6.9 K/mcL (4.3-11.1)
[2019-02-15 06:26] LABS: INR 1.1; Prothrombin Time 12.2 Seconds (9.4-12.1)
[2019-02-15 14:04] LABS: Hematocrit 35.5 % (35.3-44.9); Hemoglobin 10.6 g/dL (11.5-15.4)
[2019-02-15] MEDS ORDERED: *HR* Warfarin 5 MG TABLET PO ONE (18:00)
[2019-02-15] MEDS: *HR* OxyCODONE/APAP 5/325 TABLET PO PRN (18:01)
[2019-02-15] MEDS: Gabapentin 300 MG CAPSULE PO SCH (19:37)
[2019-02-15] MEDS: Doxycycline 100 MG CAPSULE PO SCH (19:37)
[2019-02-16 05:26] LABS: INR 1.2; Prothrombin Time 13.1 Seconds (9.4-12.1)
[2019-02-16] MEDS: *HR* Enoxaparin 150 MG/ML SYRINGE SQ SCH ×2 (05:28→18:47)
[2019-02-16] MEDS ORDERED: *HR* OxyCODONE/APAP 5/325 TABLET PO PRN (10:30)
[2019-02-16] MEDS: Doxycycline 100 MG CAPSULE PO SCH (11:53)
[2019-02-16 14:54] VITALS: BP 113/70
[2019-02-16] MEDS ORDERED: *HR* Warfarin 5 MG TABLET PO ONE (18:00)
== END 2019-02-16 20:30 | disposition home health service (06) | DRG 176 ==
LOC: EMEROOARM 16:17 → 3ANU 16:17 → SUATTDRO 20:04 → 3ANU 20:48 → SUATTDRO 02-14 20:15
PROVIDERS: ADMIT Internal Medicine; ATTEND Internal Medicine

== ENCOUNTER 2019-08-28 19:48 | Inpatient (IN) ==
[2019-08-28] MEDS ORDERED: Ampicillin/Sulbactam 1,500 MG in 0.9 % Sodium Chloride Mini Bag 100 ML IVPB ONE (19:54)
[2019-08-28] MEDS ORDERED: 0.9 % Sodium Chloride 1,000 ML IVC ONE (20:03)
[2019-08-28] MEDS ORDERED: Vancomycin 2,000 MG/520 ML IV.SOLN IVPB ONE (20:05)
[2019-08-28 20:23] LABS: Basophils % 0.1 %; Eosinophils # 0.1 K/mcL (0.0-0.6); Eosinophils % 0.3 %; Hematocrit 35.2 % (35.3-44.9); Hemoglobin 10.5 g/dL (11.5-15.4); Immature Granulocytes % 1.7 % (0-4); Lymphocytes # 1.1 K/mcL (0.6-4.6); Lymphocytes % 5.7 %; Mean Corpuscular HGB Conc 29.8 g/dL (31.6-35.5); Mean Corpuscular Hemoglobin 25.1 pg (28.0-33.3); Mean Corpuscular Volume 84.2 fL (83.0-100.0); Mean Platelet Volume 8.7 fL (9.4-12.4); Monocytes # 0.4 K/mcL (0.0-1.3); Monocytes % 1.9 %; Neutrophils # 16.9 K/mcL (1.6-8.9); Platelet Count 302 K/mcL (140-400); Red Blood Count 4.18 M/mcL (3.82-4.97); Red Cell Distribution Width 17.7 % (11.5-14.5); Segmented Neutrophils % 90.3 %; White Blood Count 18.7 K/mcL (4.3-11.1)
[2019-08-28 20:30] LABS: INR 1.5; Prothrombin Time 17.3 Seconds (9.4-12.1)
[2019-08-28 20:45] LABS: Alanine Aminotransferase 10 Units/L (7-52); Albumin 3.4 g/dL (3.5-5.7); Albumin/Globulin Ratio 0.9 (1.1-2.2); Alkaline Phosphatase 116 Units/L (34-104); Aspartate Amino Transferase 12 Units/L (13-39); BUN/Creatinine Ratio 16 (6-26); Bilirubin,Total 0.4 mg/dL (0.3-1.0); Blood Urea Nitrogen 11 mg/dL (8-23); Calcium 9.7 mg/dL (8.6-10.3); Carbon Dioxide 24 mEq/L (23-29); Chloride 101 mEq/L (98-107); Globulin 3.8 g/dL (2.4-3.5); Glucose 136 mg/dL (70-105); Osmolality,Calculated 273 (280-300); Sodium 131 mEq/L (136-145); Total Protein 7.2 g/dL (6.4-8.9); Troponin I < 0.03 ng/mL (< 0.04); eGFR For African Americans > 60 (> 60); eGFR For Non-African Americans > 60 (> 60)
[2019-08-28] MEDS ORDERED: *HR* Heparin 5,000 UNIT/ML VIAL IVP PRN (20:58)
[2019-08-28] MEDS ORDERED: *HR* Heparin 5,000 UNIT/ML VIAL IVP ONE (20:58)
[2019-08-28] MEDS: Heparin 25,000 UNIT/250 ML D5W 25,000 UNIT/250 ML IV.SOLN IVC SCH (21:14)
[2019-08-28 21:20] LABS: Heparin anti-factor XA UFH < 0.04 IU/mL (0.30-0.70)
[2019-08-28] MEDS ORDERED: Naloxone 0.4 MG/ML INJ IVP PRN (21:32)
[2019-08-28 22:36] LABS: Magnesium 1.8 mg/dL (1.6-2.6); Phosphorous 1.6 mg/dL (2.7-4.5)
[2019-08-28] MEDS ORDERED: Azithromycin 250 MG TABLET PO SCH (23:30)
[2019-08-29 00:04] LABS: Adenovirus Not Detected (Not Detect); Coronavirus 229E Not Detected (Not Detect); Coronavirus HKU1 Not Detected (Not Detect); Coronavirus NL63 Not Detected (Not Detect); Coronavirus OC43 Not Detected (Not Detect); Human Metapneumovirus Not Detected (Not Detect); SARS-CoV-2 Not Detected (Not Detect)
[2019-08-29 00:05] LABS: Bordetella Pertussis Not Detected (Not Detect); Chlamydophila pneumoniae Not Detected (Not Detect); Human Rhinovirus/Enterovirus DETECTED (Not Detect); Influenza A Subtype 2009 H1 Not Detected (Not Detect); Influenza B Not Detected (Not Detect); Mycoplasma pneumoniae Not Detected (Not Detect); Parainfluenza Virus 1 Not Detected (Not Detect); Parainfluenza Virus 2 Not Detected (Not Detect); Parainfluenza Virus 3 Not Detected (Not Detect); Parainfluenza Virus 4 Not Detected (Not Detect); Respiratory Syncytial Virus Not Detected (Not Detect)
[2019-08-29] MEDS: Piperacillin/Tazobactam 3.375 GM in 0.9 % Sodium Chloride Mini Bag 100 ML IVPB SCH ×3 (00:20→16:00)
[2019-08-29] MEDS ORDERED: Acetaminophen 325 MG TABLET PO PRN (00:42)
[2019-08-29] MEDS ORDERED: *HR* Promethazine 25 MG/ML VIAL IVP PRN (00:42)
[2019-08-29] MEDS: Ipratropium/Albuterol Neb 3 ML IH SCH ×7 (00:44→23:22)
[2019-08-29 01:35] LABS: Bilirubin,Urine Negative (Negative); Blood,Urine Negative (Negative); Clarity,Urine Clear (Clear); Color,Urine Light-Yellow (Yellow); Glucose,Urine (UA) Normal (Normal); Ketones,Urine Negative (Negative); Leukocyte Esterase,Urine Negative (Negative); Nitrite,Urine Negative (Negative); PH,Urine 6.5 pH Units (5.0-8.0); Protein,Urine Trace mg/dL (Neg-Trace); Specific Gravity,Urine 1.014 (1.010-1.025); Urobilinogen,Urine Normal (Normal)
[2019-08-29 04:09] LABS: Basophils % 0.1 %; Eosinophils % 0.1 %; Hematocrit 33.8 % (35.3-44.9); Hemoglobin 9.8 g/dL (11.5-15.4); Immature Granulocytes % 1.1 % (0-4); Lymphocytes # 1.8 K/mcL (0.6-4.6); Lymphocytes % 8.9 %; Mean Corpuscular Hemoglobin 25.1 pg (28.0-33.3); Mean Corpuscular Volume 86.4 fL (83.0-100.0); Mean Platelet Volume 8.8 fL (9.4-12.4); Monocytes # 0.3 K/mcL (0.0-1.3); Monocytes % 1.5 %; Neutrophils # 17.8 K/mcL (1.6-8.9); Nucleated Red Blood Cells 0.1 /100 WBC (0); Platelet Count 280 K/mcL (140-400); Red Blood Count 3.91 M/mcL (3.82-4.97); Segmented Neutrophils % 88.3 %; White Blood Count 20.2 K/mcL (4.3-11.1)
[2019-08-29 04:27] LABS: Magnesium 1.8 mg/dL (1.6-2.6)
[2019-08-29 04:31] LABS: BUN/Creatinine Ratio 14 (6-26); Blood Urea Nitrogen 12 mg/dL (8-23); Calcium 8.9 mg/dL (8.6-10.3); Carbon Dioxide 25 mEq/L (23-29); Chloride 102 mEq/L (98-107); Glucose 129 mg/dL (70-105); Osmolality,Calculated 279 (280-300); Potassium 3.9 mEq/L (3.5-5.1); Sodium 134 mEq/L (136-145); eGFR For African Americans > 60 (> 60); eGFR For Non-African Americans > 60 (> 60)
[2019-08-29] MEDS: Vancomycin 1,250 MG/262.5 ML IV.SOLN IVPB SCH ×2 (08:16→20:12)
[2019-08-29] MEDS: Nystatin POWDER 30 GM BOTTLE TP SCH ×3 (08:16→20:12)
[2019-08-29] MEDS: predniSONE 20 MG TABLET PO SCH (08:17)
[2019-08-29] MEDS: *HR* OxyCODONE/APAP 5/325 TABLET PO PRN ×2 (09:47→16:47)
[2019-08-29] MEDS: Heparin 25,000 UNIT/250 ML D5W 25,000 UNIT/250 ML IV.SOLN IVC SCH ×2 (09:47→21:52)
[2019-08-29] MEDS: *HR* Heparin 5,000 UNIT/ML VIAL IVP PRN (11:47)
[2019-08-29] MEDS ORDERED: Anticoagulation Consult 1 Each MC ONE (17:57)
[2019-08-29] MEDS ORDERED: Warfarin perPT PO PRN (18:00)
[2019-08-29] MEDS ORDERED: *HR* Warfarin 5 MG TABLET PO ONE (18:00)
[2019-08-29] MEDS: Gabapentin 300 MG CAPSULE PO SCH (20:12)
[2019-08-30] MEDS: Piperacillin/Tazobactam 3.375 GM in 0.9 % Sodium Chloride Mini Bag 100 ML IVPB SCH ×3 (00:26→16:09)
[2019-08-30 00:49] LABS: Basophils # 0.1 K/mcL (0.0-0.2); Basophils % 0.3 %; Immature Granulocytes % 1.4 % (0-4); Lymphocytes # 1.4 K/mcL (0.6-4.6); Lymphocytes % 7.2 %; Mean Corpuscular HGB Conc 29.4 g/dL (31.6-35.5); Mean Corpuscular Volume 88.5 fL (83.0-100.0); Mean Platelet Volume 9.4 fL (9.4-12.4); Monocytes # 0.5 K/mcL (0.0-1.3); Monocytes % 2.4 %; Neutrophils # 17.1 K/mcL (1.6-8.9); Platelet Count 242 K/mcL (140-400); Red Blood Count 3.84 M/mcL (3.82-4.97); Red Cell Distribution Width 18.1 % (11.5-14.5); Segmented Neutrophils % 88.7 %; White Blood Count 19.2 K/mcL (4.3-11.1)
[2019-08-30 00:56] LABS: Heparin anti-factor XA UFH 0.25 IU/mL (0.30-0.70); INR 1.4; Prothrombin Time 15.5 Seconds (9.4-12.1)
[2019-08-30 01:08] LABS: BUN/Creatinine Ratio 17 (6-26); Blood Urea Nitrogen 12 mg/dL (8-23); Calcium 9.8 mg/dL (8.6-10.3); Carbon Dioxide 22 mEq/L (23-29); Chloride 104 mEq/L (98-107); Glucose 113 mg/dL (70-105); Osmolality,Calculated 279 (280-300); Potassium 3.8 mEq/L (3.5-5.1); Sodium 134 mEq/L (136-145); eGFR For African Americans > 60 (> 60); eGFR For Non-African Americans > 60 (> 60)
[2019-08-30] MEDS: *HR* Heparin 5,000 UNIT/ML VIAL IVP PRN (01:18)
[2019-08-30] MEDS: Ipratropium/Albuterol Neb 3 ML IH SCH ×6 (03:54→23:40)
[2019-08-30] MEDS ORDERED: methylPREDNISolone 125 MG/2 ML VIAL IVP ONE (04:46)
[2019-08-30 05:11] LABS: ABG Base Excess 1 mEq/L (-2 to 3); ABG HCO3 26 mEq/L (21-27); ABG Oxygen Saturation 95 % (95-98); ABG PCO2 42 mmHg (35-45); ABG PO2 74 mmHg (85-104); ABG TCO2 27 mEq/L (20-26)
[2019-08-30] MEDS ORDERED: Furosemide 20 MG/2 ML VIAL IVP ONE (06:27)
[2019-08-30] MEDS: Azithromycin 250 MG TABLET PO SCH (08:48)
[2019-08-30] MEDS: Vancomycin 1,250 MG/262.5 ML IV.SOLN IVPB SCH ×2 (08:48→20:30)
[2019-08-30] MEDS: predniSONE 20 MG TABLET PO SCH (08:48)
[2019-08-30] MEDS: Nystatin POWDER 30 GM BOTTLE TP SCH ×3 (08:50→21:04)
[2019-08-30] MEDS: Heparin 25,000 UNIT/250 ML D5W 25,000 UNIT/250 ML IV.SOLN IVC SCH ×2 (09:00→20:57)
[2019-08-30 11:09] LABS: Troponin I 0.11 ng/mL (< 0.04)
[2019-08-30] MEDS ORDERED: *HR* Dextrose 50 % in Water (Vial) 50 ML VIAL IVP PRN (13:10)
[2019-08-30] MEDS ORDERED: Dextrose Gel 15 GM/37.5 ML TUBE PO PRN ×2 (13:10)
[2019-08-30] MEDS ORDERED: D5% in Water 1,000 ML IVC PRN (13:10)
[2019-08-30] MEDS ORDERED: Insulin Human Regular 10 UNIT in 0.9 % Sodium Chloride 10 ML IV ONE (13:10)
[2019-08-30 13:47] LABS: Estimated Average Glucose 140 mg/dl; Hemoglobin A1C 6.5 %
[2019-08-30] MEDS: Insulin LISPRO 300 UNITS/3 ML VIAL SQ SCH ×2 (17:10→20:29)
[2019-08-30] MEDS ORDERED: *HR* Warfarin 5 MG TABLET PO ONE (18:00)
[2019-08-30] MEDS: Gabapentin 300 MG CAPSULE PO SCH (20:28)
[2019-08-30] MEDS: *HR* OxyCODONE/APAP 5/325 TABLET PO PRN (20:59)
[2019-08-30] MEDS ORDERED: Furosemide 20 MG/2 ML VIAL IVP SCH (21:00)
[2019-08-31] MEDS: Piperacillin/Tazobactam 3.375 GM in 0.9 % Sodium Chloride Mini Bag 100 ML IVPB SCH ×4 (00:15→23:07)
[2019-08-31 02:48] LABS: Basophils % 0.2 %; Hemoglobin 8.7 g/dL (11.5-15.4); Monocytes % 3.3 %
[2019-08-31 02:50] LABS: Hematocrit 30.7 % (35.3-44.9); Immature Granulocytes % 2.5 % (0-4); Lymphocytes # 0.8 K/mcL (0.6-4.6); Lymphocytes % 4.9 %; Mean Corpuscular HGB Conc 28.3 g/dL (31.6-35.5); Mean Corpuscular Hemoglobin 24.9 pg (28.0-33.3); Mean Platelet Volume 9.6 fL (9.4-12.4); Monocytes # 0.6 K/mcL (0.0-1.3); Nucleated Red Blood Cells 0.2 /100 WBC (0); Platelet Count 331 K/mcL (140-400); Red Blood Count 3.49 M/mcL (3.82-4.97); Red Cell Distribution Width 18.1 % (11.5-14.5); Segmented Neutrophils % 89.1 %; White Blood Count 16.8 K/mcL (4.3-11.1)
[2019-08-31 03:02] LABS: INR 1.4; Prothrombin Time 16.3 Seconds (9.4-12.1)
[2019-08-31 03:08] LABS: BUN/Creatinine Ratio 23 (6-26); Blood Urea Nitrogen 19 mg/dL (8-23); Calcium 9.1 mg/dL (8.6-10.3); Carbon Dioxide 25 mEq/L (23-29); Chloride 105 mEq/L (98-107); Glucose 183 mg/dL (70-105); Osmolality,Calculated 291 (280-300); Potassium 3.7 mEq/L (3.5-5.1); Sodium 137 mEq/L (136-145); eGFR For African Americans > 60 (> 60); eGFR For Non-African Americans > 60 (> 60)
[2019-08-31 03:26] LABS: Hypochromasia Present (Not Present); Platelet Estimate Normal (Normal)
[2019-08-31] MEDS: Ipratropium/Albuterol Neb 3 ML IH SCH ×6 (03:43→23:31)
[2019-08-31] MEDS: Heparin 25,000 UNIT/250 ML D5W 25,000 UNIT/250 ML IV.SOLN IVC SCH (07:58)
[2019-08-31] MEDS: Insulin LISPRO 300 UNITS/3 ML VIAL SQ SCH ×4 (08:10→21:02)
[2019-08-31] MEDS: predniSONE 20 MG TABLET PO SCH (09:28)
[2019-08-31] MEDS: Azithromycin 250 MG TABLET PO SCH (09:28)
[2019-08-31] MEDS: Vancomycin 1,250 MG/262.5 ML IV.SOLN IVPB SCH ×2 (09:29→19:52)
[2019-08-31] MEDS: Furosemide 20 MG/2 ML VIAL IVP SCH ×2 (09:29→16:52)
[2019-08-31] MEDS: Nystatin POWDER 30 GM BOTTLE TP SCH ×3 (09:29→19:56)
[2019-08-31] MEDS ORDERED: *HR* Warfarin 5 MG TABLET PO ONE (18:00)
[2019-08-31] MEDS: Gabapentin 300 MG CAPSULE PO SCH (19:52)
[2019-09-01 01:24] LABS: Basophils # 0.1 K/mcL (0.0-0.2); Basophils % 0.4 %; Eosinophils % 0.1 %; Hematocrit 30.7 % (35.3-44.9); Hemoglobin 8.9 g/dL (11.5-15.4); Immature Granulocytes % 4.6 % (0-4); Lymphocytes # 1.4 K/mcL (0.6-4.6); Lymphocytes % 10.2 %; Mean Corpuscular Hemoglobin 25.1 pg (28.0-33.3); Mean Corpuscular Volume 86.7 fL (83.0-100.0); Mean Platelet Volume 9.2 fL (9.4-12.4); Monocytes # 0.5 K/mcL (0.0-1.3); Monocytes % 3.8 %; Platelet Count 337 K/mcL (140-400); Red Blood Count 3.54 M/mcL (3.82-4.97); Red Cell Distribution Width 18.2 % (11.5-14.5); Segmented Neutrophils % 80.9 %; White Blood Count 13.6 K/mcL (4.3-11.1)
[2019-09-01 01:29] LABS: INR 1.8; Prothrombin Time 20.1 Seconds (9.4-12.1)
[2019-09-01 01:45] LABS: BUN/Creatinine Ratio 24 (6-26); Blood Urea Nitrogen 17 mg/dL (8-23); Calcium 9.2 mg/dL (8.6-10.3); Carbon Dioxide 26 mEq/L (23-29); Chloride 103 mEq/L (98-107); Glucose 106 mg/dL (70-105); Osmolality,Calculated 290 (280-300); Potassium 3.6 mEq/L (3.5-5.1); Sodium 139 mEq/L (136-145); eGFR For African Americans > 60 (> 60); eGFR For Non-African Americans > 60 (> 60)
[2019-09-01 01:46] LABS: Troponin I < 0.03 ng/mL (< 0.04)
[2019-09-01] MEDS: Ipratropium/Albuterol Neb 3 ML IH SCH ×6 (03:35→23:50)
[2019-09-01] MEDS: Heparin 25,000 UNIT/250 ML D5W 25,000 UNIT/250 ML IV.SOLN IVC SCH ×2 (04:38→15:29)
[2019-09-01] MEDS: Vancomycin 1,250 MG/262.5 ML IV.SOLN IVPB SCH ×2 (09:29→21:24)
[2019-09-01] MEDS: Azithromycin 250 MG TABLET PO SCH (09:29)
[2019-09-01] MEDS: Furosemide 20 MG/2 ML VIAL IVP SCH (09:29)
[2019-09-01] MEDS: *HR* OxyCODONE/APAP 5/325 TABLET PO PRN ×2 (09:29→21:15)
[2019-09-01] MEDS: predniSONE 20 MG TABLET PO SCH (09:29)
[2019-09-01] MEDS: Insulin LISPRO 300 UNITS/3 ML VIAL SQ SCH ×4 (09:30→21:15)
[2019-09-01] MEDS: Nystatin POWDER 30 GM BOTTLE TP SCH ×3 (09:30→21:22)
[2019-09-01] MEDS: Piperacillin/Tazobactam 3.375 GM in 0.9 % Sodium Chloride Mini Bag 100 ML IVPB SCH ×2 (09:30→15:30)
[2019-09-01] MEDS: Furosemide 20 MG TABLET PO SCH (17:12)
[2019-09-01] MEDS ORDERED: *HR* Warfarin 5 MG TABLET PO ONE (18:00)
[2019-09-01] MEDS: Gabapentin 300 MG CAPSULE PO SCH (21:14)
[2019-09-02] MEDS: Piperacillin/Tazobactam 3.375 GM in 0.9 % Sodium Chloride Mini Bag 100 ML IVPB SCH ×3 (00:13→15:47)
[2019-09-02 01:28] LABS: Hematocrit 29.5 % (35.3-44.9); Hemoglobin 8.6 g/dL (11.5-15.4); Mean Corpuscular HGB Conc 29.2 g/dL (31.6-35.5); Mean Corpuscular Hemoglobin 25.9 pg (28.0-33.3); Mean Corpuscular Volume 88.9 fL (83.0-100.0); Mean Platelet Volume 9.1 fL (9.4-12.4); Platelet Count 303 K/mcL (140-400); Red Blood Count 3.32 M/mcL (3.82-4.97); Red Cell Distribution Width 18.4 % (11.5-14.5)
[2019-09-02 01:34] LABS: Prothrombin Time 22.9 Seconds (9.4-12.1)
[2019-09-02 01:46] LABS: BUN/Creatinine Ratio 29 (6-26); Blood Urea Nitrogen 18 mg/dL (8-23); Calcium 9.2 mg/dL (8.6-10.3); Carbon Dioxide 30 mEq/L (23-29); Chloride 104 mEq/L (98-107); Glucose 106 mg/dL (70-105); Osmolality,Calculated 294 (280-300); Potassium 3.8 mEq/L (3.5-5.1); Sodium 141 mEq/L (136-145); eGFR For African Americans > 60 (> 60); eGFR For Non-African Americans > 60 (> 60)
[2019-09-02 02:37] LABS: Lymphocytes # 1.5 K/mcL (0.6-4.6); Monocytes # 0.4 K/mcL (0.0-1.3); Neutrophils # 8.4 K/mcL (1.6-8.9); Platelet Estimate Normal (Normal); Reactive Lymphocytes Present (Not Present); Toxic Granulation Present (Not Present)
[2019-09-02] MEDS: Ipratropium/Albuterol Neb 3 ML IH SCH ×6 (03:21→23:51)
[2019-09-02] MEDS: Heparin 25,000 UNIT/250 ML D5W 25,000 UNIT/250 ML IV.SOLN IVC SCH (06:19)
[2019-09-02] MEDS: predniSONE 20 MG TABLET PO SCH (07:47)
[2019-09-02] MEDS: *HR* OxyCODONE/APAP 5/325 TABLET PO PRN (07:47)
[2019-09-02] MEDS: Furosemide 20 MG TABLET PO SCH ×2 (07:47→17:38)
[2019-09-02] MEDS: Azithromycin 250 MG TABLET PO SCH (07:47)
[2019-09-02] MEDS: Vancomycin 1,250 MG/262.5 ML IV.SOLN IVPB SCH ×2 (07:48→23:21)
[2019-09-02] MEDS: Nystatin POWDER 30 GM BOTTLE TP SCH ×3 (07:48→23:21)
[2019-09-02] MEDS: Insulin LISPRO 300 UNITS/3 ML VIAL SQ SCH ×4 (07:49→22:47)
[2019-09-02] MEDS ORDERED: *HR* Warfarin 5 MG TABLET PO ONE (18:00)
[2019-09-02] MEDS: Gabapentin 300 MG CAPSULE PO SCH (23:20)
[2019-09-03] MEDS: Piperacillin/Tazobactam 3.375 GM in 0.9 % Sodium Chloride Mini Bag 100 ML IVPB SCH ×3 (01:07→15:16)
[2019-09-03 02:53] LABS: INR 1.9; Prothrombin Time 21.1 Seconds (9.4-12.1)
[2019-09-03] MEDS: Ipratropium/Albuterol Neb 3 ML IH SCH ×3 (03:47→11:50)
[2019-09-03] MEDS: Insulin LISPRO 300 UNITS/3 ML VIAL SQ SCH ×4 (07:52→20:44)
[2019-09-03 08:51] LABS: INR 1.8; Prothrombin Time 20.4 Seconds (9.4-12.1)
[2019-09-03] MEDS: Furosemide 20 MG TABLET PO SCH (10:09)
[2019-09-03] MEDS: *HR* OxyCODONE/APAP 5/325 TABLET PO PRN ×2 (10:10→20:28)
[2019-09-03] MEDS: predniSONE 20 MG TABLET PO SCH (10:10)
[2019-09-03] MEDS: Nystatin POWDER 30 GM BOTTLE TP SCH ×3 (10:12→20:18)
[2019-09-03] MEDS: Vancomycin 1,250 MG/262.5 ML IV.SOLN IVPB SCH ×2 (10:13→20:14)
[2019-09-03] MEDS ORDERED: Ipratropium/Albuterol Neb 3 ML IH PRN (13:16)
[2019-09-03] MEDS: *HR* Enoxaparin 150 MG/ML SYRINGE SQ SCH ×2 (15:16→18:03)
[2019-09-03] MEDS ORDERED: Aminoglycoside Consult 1 EACH MC ONE (17:57)
[2019-09-03] MEDS ORDERED: *HR* Warfarin 5 MG TABLET PO ONE (18:00)
[2019-09-03] MEDS: Gabapentin 300 MG CAPSULE PO SCH (20:18)
[2019-09-04] MEDS: Piperacillin/Tazobactam 3.375 GM in 0.9 % Sodium Chloride Mini Bag 100 ML IVPB SCH ×2 (00:11→12:43)
[2019-09-04] MEDS: *HR* Enoxaparin 150 MG/ML SYRINGE SQ SCH (05:36)
[2019-09-04] MEDS: Insulin LISPRO 300 UNITS/3 ML VIAL SQ SCH ×2 (07:25→12:44)
[2019-09-04 08:50] LABS: INR 1.9; Prothrombin Time 21.2 Seconds (9.4-12.1)
[2019-09-04 10:54] VITALS: BP 135/83
[2019-09-04] MEDS: Vancomycin 1,250 MG/262.5 ML IV.SOLN IVPB SCH (12:44)
[2019-09-04] MEDS ORDERED: *HR* Enoxaparin 150 MG/ML SYRINGE SQ ONE (16:00)
[2019-09-04] MEDS ORDERED: *HR* Warfarin 7.5 MG TABLET PO ONE (18:00)
== END 2019-09-04 17:58 | disposition home health service (06) | DRG 871 ==
LOC: EMEROOARM 19:48 → 2ANU 19:48 → SUATTDRO 21:38 → 2ANU 22:09 → SUATTDRO 08-29 10:46
PROVIDERS: ADMIT Student in an Organized Health Care Education/Training Program; ATTEND Internal Medicine

== ENCOUNTER 2019-10-09 18:49 | Inpatient (IN) ==
[2019-10-09] MEDS ORDERED: 0.9 % Sodium Chloride 500 ML IVC ONE (19:17)
[2019-10-09 19:59] LABS: Basophils % 0.3 %
[2019-10-09 20:00] LABS: Eosinophils # 0.6 K/mcL (0.0-0.6); Eosinophils % 5.1 %; Hematocrit 31.2 % (35.3-44.9); Immature Granulocytes % 0.8 % (0-4); Lymphocytes # 1.2 K/mcL (0.6-4.6); Mean Corpuscular HGB Conc 28.8 g/dL (31.6-35.5); Mean Corpuscular Hemoglobin 25.8 pg (28.0-33.3); Mean Corpuscular Volume 89.4 fL (83.0-100.0); Mean Platelet Volume 8.7 fL (9.4-12.4); Monocytes # 0.4 K/mcL (0.0-1.3); Monocytes % 3.5 %; Platelet Count 421 K/mcL (140-400); Red Blood Count 3.49 M/mcL (3.82-4.97); Red Cell Distribution Width 19.5 % (11.5-14.5); Segmented Neutrophils % 79.3 %
[2019-10-09 20:02] LABS: Neutrophils # 8.7 K/mcL (1.6-8.9)
[2019-10-09 20:18] LABS: Alanine Aminotransferase 7 Units/L (7-52); Albumin 2.5 g/dL (3.5-5.7); Albumin/Globulin Ratio 0.8 (1.1-2.2); Alkaline Phosphatase 107 Units/L (34-104); Anisocytosis 1+ (Not Present); Aspartate Amino Transferase 10 Units/L (13-39); BUN/Creatinine Ratio 17 (6-26); Bilirubin,Total 0.2 mg/dL (0.3-1.0); Blood Urea Nitrogen 11 mg/dL (8-23); Calcium 8.6 mg/dL (8.6-10.3); Carbon Dioxide 23 mEq/L (23-29); Chloride 106 mEq/L (98-107); Globulin 3.1 g/dL (2.4-3.5); Glucose 132 mg/dL (70-105); Osmolality,Calculated 281 (280-300); Platelet Estimate Increased (Normal); Potassium 3.9 mEq/L (3.5-5.1); Sodium 135 mEq/L (136-145); Total Protein 5.6 g/dL (6.4-8.9); eGFR For African Americans > 60 (> 60); eGFR For Non-African Americans > 60 (> 60)
[2019-10-09] MEDS ORDERED: Piperacillin/Tazobactam 3.375 GM in 0.9 % Sodium Chloride Mini Bag 100 ML IVPB ONE (20:39)
[2019-10-09] MEDS ORDERED: *HR* OxyCODONE/APAP 5/325 TABLET PO ONE (20:44)
[2019-10-09] MEDS ORDERED: Ondansetron ODT 4 MG TAB.RAPDIS SL PRN (21:41)
[2019-10-09] MEDS ORDERED: Naloxone 0.4 MG/ML INJ IVP PRN (21:41)
[2019-10-09] MEDS ORDERED: *HR* OxyCODONE Immed Rel 5 MG TABLET PO ONE (21:45)
[2019-10-09] MEDS: Gabapentin 300 MG CAPSULE PO SCH (22:43)
[2019-10-09] MEDS ORDERED: Vancomycin 2,000 MG/520 ML IV.SOLN IVPB ONE (23:09)
[2019-10-10] MEDS ORDERED: *HR* OxyCODONE/APAP 10/325 TABLET PO PRN (03:00)
[2019-10-10 05:02] LABS: Immature Granulocytes % 0.8 % (0-4)
[2019-10-10 05:04] LABS: Basophils % 0.4 %; Eosinophils # 0.8 K/mcL (0.0-0.6); Eosinophils % 8.7 %; Hematocrit 31.1 % (35.3-44.9); Hemoglobin 8.8 g/dL (11.5-15.4); Lymphocytes # 1.6 K/mcL (0.6-4.6); Lymphocytes % 17.4 %; Mean Corpuscular HGB Conc 28.3 g/dL (31.6-35.5); Mean Corpuscular Hemoglobin 25.4 pg (28.0-33.3); Mean Corpuscular Volume 89.6 fL (83.0-100.0); Mean Platelet Volume 8.4 fL (9.4-12.4); Monocytes # 0.4 K/mcL (0.0-1.3); Neutrophils # 6.2 K/mcL (1.6-8.9); Platelet Count 401 K/mcL (140-400); Red Blood Count 3.47 M/mcL (3.82-4.97); Red Cell Distribution Width 19.7 % (11.5-14.5); Segmented Neutrophils % 68.7 %
[2019-10-10 05:07] LABS: INR 2.5; Prothrombin Time 28.5 Seconds (9.4-12.1)
[2019-10-10] MEDS: Piperacillin/Tazobactam 3.375 GM in 0.9 % Sodium Chloride Mini Bag 100 ML IVPB SCH ×3 (05:21→22:36)
[2019-10-10 05:22] LABS: BUN/Creatinine Ratio 16 (6-26); Blood Urea Nitrogen 10 mg/dL (8-23); Calcium 8.7 mg/dL (8.6-10.3); Carbon Dioxide 25 mEq/L (23-29); Chloride 107 mEq/L (98-107); Glucose 81 mg/dL (70-105); Osmolality,Calculated 278 (280-300); Sodium 135 mEq/L (136-145); eGFR For African Americans > 60 (> 60); eGFR For Non-African Americans > 60 (> 60)
[2019-10-10 05:24] LABS: % Iron Saturation 6 % (15-50); Anisocytosis 2+ (Not Present); Iron 11 mcg/dL (50-170); Platelet Estimate Normal (Normal); Transferrin 142 mg/dL (203-362)
[2019-10-10 05:25] LABS: Polychromasia 1+ (Not Present)
[2019-10-10 05:42] LABS: Ferritin 26 ng/mL (10-120)
[2019-10-10 05:48] LABS: Folate 8.7 ng/mL (3.0-16.0)
[2019-10-10] MEDS ORDERED: Iron Sucrose Complex 400 MG in 0.9 % Sodium Chloride 250 ML IVPB ONE ×2 (09:15→12:00)
[2019-10-10] MEDS: Vancomycin 1,250 MG/262.5 ML IV.SOLN IVPB SCH ×2 (10:18→23:29)
[2019-10-10] MEDS ORDERED: Fluconazole 150 MG TABLET PO ONE (12:07)
[2019-10-10] MEDS: Ipratropium/Albuterol Neb 3 ML IH SCH ×4 (15:41→23:45)
[2019-10-10] MEDS ORDERED: Warfarin perPT PO PRN (18:00)
[2019-10-10] MEDS ORDERED: *HR* Warfarin 4 MG TABLET PO ONE (18:00)
[2019-10-10] MEDS ORDERED: *HR* Warfarin 3 MG TABLET PO SCH (18:00)
[2019-10-10] MEDS ORDERED: *HR* Warfarin 3 MG TABLET PO ONE (18:00)
[2019-10-10] MEDS: *HR* OxyCODONE/APAP 10/325 TABLET PO PRN (18:34)
[2019-10-10] MEDS: Gabapentin 300 MG CAPSULE PO SCH (22:35)
[2019-10-11] MEDS: *HR* OxyCODONE/APAP 10/325 TABLET PO PRN ×2 (00:43→20:23)
[2019-10-11 01:41] LABS: INR 2.4; Prothrombin Time 26.8 Seconds (9.4-12.1)
[2019-10-11 01:49] LABS: Basophils % 0.3 %; Eosinophils # 0.6 K/mcL (0.0-0.6); Eosinophils % 6.9 %; Hematocrit 32.7 % (35.3-44.9); Hemoglobin 9.1 g/dL (11.5-15.4); Lymphocytes # 1.4 K/mcL (0.6-4.6); Lymphocytes % 15.7 %; Mean Corpuscular HGB Conc 27.8 g/dL (31.6-35.5); Mean Corpuscular Volume 89.8 fL (83.0-100.0); Mean Platelet Volume 8.5 fL (9.4-12.4); Monocytes # 0.2 K/mcL (0.0-1.3); Monocytes % 2.2 %; Nucleated Red Blood Cells 0.2 /100 WBC (0); Platelet Count 439 K/mcL (140-400); Red Blood Count 3.64 M/mcL (3.82-4.97); Red Cell Distribution Width 19.7 % (11.5-14.5); Segmented Neutrophils % 73.9 %; White Blood Count 9.1 K/mcL (4.3-11.1)
[2019-10-11 01:52] LABS: Neutrophils # 6.7 K/mcL (1.6-8.9)
[2019-10-11 02:07] LABS: Alanine Aminotransferase 7 Units/L (7-52); Albumin 2.5 g/dL (3.5-5.7); Albumin/Globulin Ratio 0.7 (1.1-2.2); Alkaline Phosphatase 104 Units/L (34-104); Aspartate Amino Transferase 10 Units/L (13-39); BUN/Creatinine Ratio 16 (6-26); Bilirubin,Total 0.2 mg/dL (0.3-1.0); Blood Urea Nitrogen 11 mg/dL (8-23); Calcium 8.9 mg/dL (8.6-10.3); Carbon Dioxide 23 mEq/L (23-29); Chloride 106 mEq/L (98-107); Globulin 3.7 g/dL (2.4-3.5); Glucose 190 mg/dL (70-105); Magnesium 1.9 mg/dL (1.6-2.6); Osmolality,Calculated 284 (280-300); Phosphorous 2.4 mg/dL (2.7-4.5); Potassium 4.1 mEq/L (3.5-5.1); Sodium 135 mEq/L (136-145); Total Protein 6.2 g/dL (6.4-8.9); eGFR For African Americans > 60 (> 60); eGFR For Non-African Americans > 60 (> 60)
[2019-10-11 02:32] LABS: Hepatitis B Surface Antigen Nonreactive (Nonreactive)
[2019-10-11 03:01] LABS: Hepatitis B Core IgM Nonreactive (Nonreactive); Hypochromasia Present (Not Present); Platelet Estimate Normal (Normal)
[2019-10-11 03:02] LABS: Hepatitis A Antibody IgM Nonreactive (Nonreactive); Hepatitis C Virus Antibody Nonreactive (Nonreactive)
[2019-10-11] MEDS: Ipratropium/Albuterol Neb 3 ML IH SCH ×7 (03:24→23:43)
[2019-10-11] MEDS: Piperacillin/Tazobactam 3.375 GM in 0.9 % Sodium Chloride Mini Bag 100 ML IVPB SCH ×3 (06:02→20:23)
[2019-10-11] MEDS ORDERED: *HR* Warfarin 3 MG TABLET PO ONE (09:54)
[2019-10-11] MEDS: Vancomycin 1,250 MG/262.5 ML IV.SOLN IVPB SCH ×2 (10:43→21:30)
[2019-10-11] MEDS: Gabapentin 300 MG CAPSULE PO SCH (20:24)
[2019-10-11] MEDS ORDERED: Sennosides/Docusate Sodium TABLET PO SCH (21:00)
[2019-10-12 03:27] LABS: INR 2.6; Prothrombin Time 29.4 Seconds (9.4-12.1)
[2019-10-12] MEDS: Ipratropium/Albuterol Neb 3 ML IH SCH ×4 (03:29→15:46)
[2019-10-12 03:37] LABS: Red Cell Distribution Width 19.8 % (11.5-14.5)
[2019-10-12 03:38] LABS: Basophils % 0.3 %; Eosinophils # 0.7 K/mcL (0.0-0.6); Eosinophils % 8.4 %; Hematocrit 31.1 % (35.3-44.9); Hemoglobin 8.4 g/dL (11.5-15.4); Immature Granulocytes % 1.4 % (0-4); Lymphocytes % 20.1 %; Mean Corpuscular Hemoglobin 24.3 pg (28.0-33.3); Mean Corpuscular Volume 89.9 fL (83.0-100.0); Mean Platelet Volume 8.2 fL (9.4-12.4); Monocytes # 0.4 K/mcL (0.0-1.3); Neutrophils # 5.7 K/mcL (1.6-8.9); Nucleated Red Blood Cells 0.2 /100 WBC (0); Platelet Count 418 K/mcL (140-400); Red Blood Count 3.46 M/mcL (3.82-4.97); Segmented Neutrophils % 65.8 %; White Blood Count 8.7 K/mcL (4.3-11.1)
[2019-10-12 03:45] LABS: Lymphocytes # 1.8 K/mcL (0.6-4.6)
[2019-10-12 03:49] LABS: BUN/Creatinine Ratio 17 (6-26); Blood Urea Nitrogen 11 mg/dL (8-23); Calcium 9.1 mg/dL (8.6-10.3); Carbon Dioxide 29 mEq/L (23-29); Chloride 105 mEq/L (98-107); Glucose 85 mg/dL (70-105); Osmolality,Calculated 283 (280-300); Phosphorous 2.5 mg/dL (2.7-4.5); Potassium 4.3 mEq/L (3.5-5.1); Sodium 137 mEq/L (136-145); eGFR For African Americans > 60 (> 60); eGFR For Non-African Americans > 60 (> 60)
[2019-10-12 04:07] LABS: Hypochromasia Present (Not Present); Platelet Estimate Normal (Normal)
[2019-10-12] MEDS: Piperacillin/Tazobactam 3.375 GM in 0.9 % Sodium Chloride Mini Bag 100 ML IVPB SCH ×2 (06:25→14:42)
[2019-10-12 11:05] VITALS: BP 151/77
[2019-10-12] MEDS: Vancomycin 1,250 MG/262.5 ML IV.SOLN IVPB SCH (11:34)
[2019-10-12] MEDS: *HR* OxyCODONE/APAP 10/325 TABLET PO PRN (11:52)
[2019-10-12] MEDS ORDERED: *HR* Warfarin 4 MG TABLET PO ONE (18:00)
== END 2019-10-12 15:45 | disposition home health service (06) | DRG 603 ==
LOC: 3BNU 18:49 → EMEROOARM 18:49 → SUATTDRO 21:02 → 3BNU 22:20
PROVIDERS: ADMIT Internal Medicine; ATTEND Internal Medicine

== ENCOUNTER 2019-12-28 12:57 | Inpatient (IN) ==
[2019-12-28] MEDS ORDERED: 0.9 % Sodium Chloride 1,000 ML IVC ONE (13:34)
[2019-12-28 14:15] LABS: Basophils % 0.2 %; Eosinophils % 0.1 %; Hemoglobin 11.4 g/dL (11.5-15.4); Immature Granulocytes % 0.9 % (0-4); Lymphocytes # 1.2 K/mcL (0.6-4.6); Lymphocytes % 6.8 %; Mean Corpuscular Hemoglobin 28.7 pg (28.0-33.3); Mean Corpuscular Volume 95.7 fL (83.0-100.0); Mean Platelet Volume 9.2 fL (9.4-12.4); Monocytes # 0.2 K/mcL (0.0-1.3); Monocytes % 1.3 %; Neutrophils # 15.5 K/mcL (1.6-8.9); Nucleated Red Blood Cells 0.1 /100 WBC (0); Platelet Count 317 K/mcL (140-400); Red Blood Count 3.97 M/mcL (3.82-4.97); Red Cell Distribution Width 21.8 % (11.5-14.5); Segmented Neutrophils % 90.7 %; White Blood Count 17.1 K/mcL (4.3-11.1)
[2019-12-28 14:18] LABS: VBG HCO3 26 mEq/L (21-27); VBG PCO2 46 mmHg (41-51); VBG PH 7.36 pH Units (7.32-7.42); VBG PO2 48 mmHg (25-50)
[2019-12-28 14:35] LABS: BUN/Creatinine Ratio 13 (6-26); Blood Urea Nitrogen 10 mg/dL (8-23); Calcium 9.5 mg/dL (8.6-10.3); Carbon Dioxide 25 mEq/L (23-29); Chloride 99 mEq/L (98-107); Glucose 114 mg/dL (70-105); Osmolality,Calculated 268 (280-300); Potassium 3.8 mEq/L (3.5-5.1); Sodium 129 mEq/L (136-145); Troponin I < 0.03 ng/mL (< 0.04); eGFR For African Americans > 60 (> 60); eGFR For Non-African Americans > 60 (> 60)
[2019-12-28 14:46] LABS: Thyroid Stimulating Hormone 4.843 mcIU/mL (0.340-5.600)
[2019-12-28 14:58] LABS: Bilirubin,Urine Negative (Negative); Blood,Urine Negative (Negative); Clarity,Urine Clear (Clear); Color,Urine Yellow (Yellow); Glucose,Urine (UA) Normal (Normal); Ketones,Urine Negative (Negative); Leukocyte Esterase,Urine Negative (Negative); Nitrite,Urine Negative (Negative); PH,Urine 5.5 pH Units (5.0-8.0); Protein,Urine Trace mg/dL (Neg-Trace); Specific Gravity,Urine 1.026 (1.010-1.025); Urobilinogen,Urine >=8.0 mg/dL (Normal)
[2019-12-28] MEDS ORDERED: Naloxone 0.4 MG/ML INJ IVP PRN (16:42)
[2019-12-28] MEDS ORDERED: Isovue-370 500 ML BOTTLE IVP ONE (16:54)
[2019-12-28 17:11] LABS: INR 1.6; Prothrombin Time 18.2 Seconds (9.4-12.1)
[2019-12-28] MEDS ORDERED: Warfarin perPT PO PRN (18:00)
[2019-12-28] MEDS: Ipratropium/Albuterol Neb 3 ML IH PRN (18:28)
[2019-12-28] MEDS ORDERED: *HR* Warfarin 3 MG TABLET PO ONE (18:46)
[2019-12-28] MEDS: Vancomycin 1,750 MG/517.5 ML IV.SOLN IVPB SCH (20:00)
[2019-12-28] MEDS: Piperacillin/Tazobactam 3.375 GM in 0.9 % Sodium Chloride Mini Bag 100 ML IVPB SCH (20:03)
[2019-12-28] MEDS: Nystatin POWDER 30 GM BOTTLE TP SCH ×2 (20:04→21:43)
[2019-12-28] MEDS ORDERED: Acetaminophen IV 1,000 MG/100 ML INFUS..BTL IVPB ONE (20:20)
[2019-12-29] MEDS: Piperacillin/Tazobactam 3.375 GM in 0.9 % Sodium Chloride Mini Bag 100 ML IVPB SCH ×3 (03:11→19:07)
[2019-12-29] MEDS: Vancomycin 1,750 MG/517.5 ML IV.SOLN IVPB SCH ×2 (06:07→19:07)
[2019-12-29 06:18] LABS: Basophils % 0.1 %; Eosinophils % 0.1 %; Hematocrit 35.9 % (35.3-44.9); Hemoglobin 11.2 g/dL (11.5-15.4); Immature Granulocytes % 0.8 % (0-4); Lymphocytes # 0.7 K/mcL (0.6-4.6); Mean Corpuscular HGB Conc 31.2 g/dL (31.6-35.5); Mean Corpuscular Hemoglobin 30.4 pg (28.0-33.3); Mean Corpuscular Volume 97.6 fL (83.0-100.0); Mean Platelet Volume 9.3 fL (9.4-12.4); Monocytes # 0.2 K/mcL (0.0-1.3); Monocytes % 1.2 %; Neutrophils # 13.4 K/mcL (1.6-8.9); Platelet Count 274 K/mcL (140-400); Red Blood Count 3.68 M/mcL (3.82-4.97); Red Cell Distribution Width 22.2 % (11.5-14.5); Segmented Neutrophils % 92.8 %; White Blood Count 14.4 K/mcL (4.3-11.1)
[2019-12-29 06:26] LABS: INR 1.5
[2019-12-29 06:52] LABS: Platelet Estimate Normal (Normal)
[2019-12-29 07:16] LABS: BUN/Creatinine Ratio 16 (6-26); Blood Urea Nitrogen 10 mg/dL (8-23); Carbon Dioxide 23 mEq/L (23-29); Chloride 103 mEq/L (98-107); Chol/HDL Ratio 7.7 (0-4.9); Glucose 117 mg/dL (70-105); Osmolality,Calculated 276 (280-300); Potassium 3.8 mEq/L (3.5-5.1); Sodium 133 mEq/L (136-145); eGFR For African Americans > 60 (> 60); eGFR For Non-African Americans > 60 (> 60)
[2019-12-29] MEDS: Nystatin POWDER 30 GM BOTTLE TP SCH ×3 (08:35→23:49)
[2019-12-29 10:34] LABS: Estimated Average Glucose 120 mg/dl
[2019-12-29] MEDS ORDERED: *HR* Warfarin 3 MG TABLET PO ONE (18:00)
[2019-12-30 01:17] LABS: Acinetobacter baumannii by PCR Not Detected (Not Detect); Candida albicans by PCR Not Detected (Not Detect); Candida glabrata by PCR Not Detected (Not Detect); Candida krusei by PCR Not Detected (Not Detect); Candida parapsilosis by PCR Not Detected (Not Detect); Candida tropicalis by PCR Not Detected (Not Detect); Enterobacter cloacae Cmplx PCR Not Detected (Not Detect); Enterobacteriaceae by PCR Not Detected (Not Detect); Enterococcus by PCR Not Detected (Not Detect); Escherichia coli by PCR Not Detected (Not Detect); Klebsiella oxytoca by PCR Not Detected (Not Detect); Klebsiella pneumoniae by PCR Not Detected (Not Detect); Proteus by PCR Not Detected (Not Detect); Pseudomonas aeruginosa by PCR Not Detected (Not Detect); Serratia marcescens by PCR Not Detected (Not Detect); Staphylococcus aureus by PCR Not Detected (Not Detect); Staphylococcus by PCR DETECTED (Not Detect); Streptococcus agalactiae(B)PCR Not Detected (Not Detect); Streptococcus by PCR Not Detected (Not Detect); Streptococcus pneumoniae PCR Not Detected (Not Detect); Streptococcus pyogenes (A) PCR Not Detected (Not Detect); blaKPC Carbapenem-Resist Gene Not Detected (Not Detect); mecA Methicillin-Resist Gene DETECTED (Not Detect); vanA/B Vancomycin-Resist Genes Not Detected (Not Detect)
[2019-12-30] MEDS: Piperacillin/Tazobactam 3.375 GM in 0.9 % Sodium Chloride Mini Bag 100 ML IVPB SCH ×3 (04:16→17:31)
[2019-12-30 08:22] LABS: Basophils # 0.1 K/mcL (0.0-0.2); Basophils % 0.3 %; Eosinophils # 0.2 K/mcL (0.0-0.6); Eosinophils % 1.1 %; Hematocrit 33.5 % (35.3-44.9); Immature Granulocytes % 1.6 % (0-4); Lymphocytes % 6.2 %; Mean Corpuscular HGB Conc 29.9 g/dL (31.6-35.5); Mean Corpuscular Hemoglobin 29.2 pg (28.0-33.3); Mean Corpuscular Volume 97.7 fL (83.0-100.0); Mean Platelet Volume 9.2 fL (9.4-12.4); Monocytes # 0.5 K/mcL (0.0-1.3); Neutrophils # 14.1 K/mcL (1.6-8.9); Platelet Count 277 K/mcL (140-400); Red Blood Count 3.43 M/mcL (3.82-4.97); Red Cell Distribution Width 22.1 % (11.5-14.5); Segmented Neutrophils % 87.8 %; White Blood Count 16.1 K/mcL (4.3-11.1)
[2019-12-30 08:36] LABS: BUN/Creatinine Ratio 14 (6-26); Blood Urea Nitrogen 10 mg/dL (8-23); Calcium 9.1 mg/dL (8.6-10.3); Carbon Dioxide 24 mEq/L (23-29); Chloride 103 mEq/L (98-107); Glucose 96 mg/dL (70-105); Osmolality,Calculated 275 (280-300); Potassium 3.4 mEq/L (3.5-5.1); Sodium 133 mEq/L (136-145); Vancomycin,Trough 16 mcg/mL (5-10); eGFR For African Americans > 60 (> 60); eGFR For Non-African Americans > 60 (> 60)
[2019-12-30 08:38] LABS: INR 1.6; Prothrombin Time 18.2 Seconds (9.4-12.1)
[2019-12-30] MEDS: Nystatin POWDER 30 GM BOTTLE TP SCH ×3 (10:03→19:51)
[2019-12-30] MEDS: Aspirin 81 MG TAB.CHEW PO SCH (10:03)
[2019-12-30] MEDS: Vancomycin 1,750 MG/517.5 ML IV.SOLN IVPB SCH ×2 (10:03→23:12)
[2019-12-30] MEDS: Acetaminophen 325 MG TABLET PO PRN ×2 (10:09→19:50)
[2019-12-30] MEDS ORDERED: *HR* Warfarin 3 MG TABLET PO ONE (18:00)
[2019-12-31 02:31] LABS: Basophils # 0.1 K/mcL (0.0-0.2); Basophils % 0.4 %; Eosinophils # 0.4 K/mcL (0.0-0.6); Eosinophils % 2.8 %; Hematocrit 31.8 % (35.3-44.9); Hemoglobin 9.3 g/dL (11.5-15.4); Immature Granulocytes % 1.8 % (0-4); Lymphocytes # 1.1 K/mcL (0.6-4.6); Lymphocytes % 7.9 %; Mean Corpuscular HGB Conc 29.2 g/dL (31.6-35.5); Mean Corpuscular Hemoglobin 28.9 pg (28.0-33.3); Mean Corpuscular Volume 98.8 fL (83.0-100.0); Mean Platelet Volume 9.5 fL (9.4-12.4); Monocytes # 0.5 K/mcL (0.0-1.3); Monocytes % 3.3 %; Neutrophils # 11.8 K/mcL (1.6-8.9); Platelet Count 265 K/mcL (140-400); Red Blood Count 3.22 M/mcL (3.82-4.97); Red Cell Distribution Width 21.6 % (11.5-14.5); Segmented Neutrophils % 83.8 %
[2019-12-31 02:43] LABS: INR 1.6; Prothrombin Time 18.4 Seconds (9.4-12.1)
[2019-12-31 02:55] LABS: BUN/Creatinine Ratio 15 (6-26); Blood Urea Nitrogen 16 mg/dL (8-23); Calcium 8.9 mg/dL (8.6-10.3); Carbon Dioxide 22 mEq/L (23-29); Chloride 106 mEq/L (98-107); Glucose 92 mg/dL (70-105); Osmolality,Calculated 279 (280-300); Potassium 3.2 mEq/L (3.5-5.1); Sodium 134 mEq/L (136-145); eGFR For African Americans > 60 (> 60); eGFR For Non-African Americans 51 (> 60)
[2019-12-31] MEDS: Piperacillin/Tazobactam 3.375 GM in 0.9 % Sodium Chloride Mini Bag 100 ML IVPB SCH ×3 (03:46→19:40)
[2019-12-31] MEDS: Aspirin 81 MG TAB.CHEW PO SCH (08:31)
[2019-12-31] MEDS: Nystatin POWDER 30 GM BOTTLE TP SCH ×3 (08:32→19:41)
[2019-12-31] MEDS: Ipratropium/Albuterol Neb 3 ML IH PRN (09:00)
[2019-12-31] MEDS: Vancomycin 1,750 MG/517.5 ML IV.SOLN IVPB SCH (10:02)
[2019-12-31] MEDS ORDERED: Perflutren Lipid Microsphere 1.3 ML in 0.9 % Sodium Chloride 8.7 ML IVP PRN (13:13)
[2019-12-31] MEDS ORDERED: *HR* Warfarin 3 MG TABLET PO ONE (18:00)
[2020-01-01 01:05] LABS: Basophils # 0.1 K/mcL (0.0-0.2); Basophils % 0.4 %; Eosinophils # 0.6 K/mcL (0.0-0.6); Eosinophils % 4.5 %; Hematocrit 31.8 % (35.3-44.9); Hemoglobin 9.4 g/dL (11.5-15.4); Immature Granulocytes % 1.7 % (0-4); Lymphocytes % 7.8 %; Mean Corpuscular HGB Conc 29.6 g/dL (31.6-35.5); Mean Corpuscular Hemoglobin 29.6 pg (28.0-33.3); Mean Platelet Volume 9.3 fL (9.4-12.4); Monocytes # 0.5 K/mcL (0.0-1.3); Neutrophils # 10.8 K/mcL (1.6-8.9); Nucleated Red Blood Cells 0.2 /100 WBC (0); Platelet Count 274 K/mcL (140-400); Red Blood Count 3.18 M/mcL (3.82-4.97); Red Cell Distribution Width 22.1 % (11.5-14.5); Segmented Neutrophils % 81.6 %; White Blood Count 13.2 K/mcL (4.3-11.1)
[2020-01-01 01:08] LABS: Prothrombin Time 22.2 Seconds (9.4-12.1)
[2020-01-01 01:25] LABS: Calcium 8.8 mg/dL (8.6-10.3); Potassium 3.4 mEq/L (3.5-5.1)
[2020-01-01] MEDS: Piperacillin/Tazobactam 3.375 GM in 0.9 % Sodium Chloride Mini Bag 100 ML IVPB SCH ×3 (03:17→19:41)
[2020-01-01] MEDS: *HR* OxyCODONE/APAP 5/325 TABLET PO PRN ×2 (03:25→18:04)
[2020-01-01] MEDS: 0.9 % Sodium Chloride 1,000 ML IVC SCH ×2 (09:08→22:30)
[2020-01-01] MEDS: Nystatin POWDER 30 GM BOTTLE TP SCH ×3 (09:12→19:42)
[2020-01-01] MEDS: Aspirin 81 MG TAB.CHEW PO SCH (09:12)
[2020-01-01] MEDS: Ipratropium/Albuterol Neb 3 ML IH PRN (16:06)
[2020-01-01] MEDS ORDERED: *HR* Warfarin 3 MG TABLET PO ONE (18:00)
[2020-01-02] MEDS: Piperacillin/Tazobactam 3.375 GM in 0.9 % Sodium Chloride Mini Bag 100 ML IVPB SCH ×3 (03:01→19:59)
[2020-01-02 06:58] LABS: Basophils % 0.4 %; Hemoglobin 9.4 g/dL (11.5-15.4); Mean Platelet Volume 9.1 fL (9.4-12.4); Red Cell Distribution Width 22.5 % (11.5-14.5)
[2020-01-02 07:00] LABS: Basophils # 0.1 K/mcL (0.0-0.2); Eosinophils # 0.6 K/mcL (0.0-0.6); Hematocrit 32.5 % (35.3-44.9); Immature Granulocytes % 2.4 % (0-4); Lymphocytes # 0.9 K/mcL (0.6-4.6); Lymphocytes % 6.6 %; Mean Corpuscular HGB Conc 28.9 g/dL (31.6-35.5); Mean Corpuscular Hemoglobin 29.5 pg (28.0-33.3); Mean Corpuscular Volume 101.9 fL (83.0-100.0); Monocytes # 0.6 K/mcL (0.0-1.3); Neutrophils # 11.4 K/mcL (1.6-8.9); Platelet Count 360 K/mcL (140-400); Red Blood Count 3.19 M/mcL (3.82-4.97); Segmented Neutrophils % 82.6 %; White Blood Count 13.8 K/mcL (4.3-11.1)
[2020-01-02 07:03] LABS: INR 2.9; Prothrombin Time 32.6 Seconds (9.4-12.1)
[2020-01-02 07:16] LABS: Anisocytosis 1+ (Not Present); Hypochromasia Present (Not Present); Platelet Estimate Normal (Normal)
[2020-01-02 07:18] LABS: Potassium 3.9 mEq/L (3.5-5.1)
[2020-01-02] MEDS: Aspirin 81 MG TAB.CHEW PO SCH (08:08)
[2020-01-02] MEDS: Nystatin POWDER 30 GM BOTTLE TP SCH ×3 (08:08→20:08)
[2020-01-02] MEDS: *HR* OxyCODONE/APAP 5/325 TABLET PO PRN ×2 (08:08→15:59)
[2020-01-02] MEDS: 0.9 % Sodium Chloride 1,000 ML IVC SCH (15:59)
[2020-01-02 16:29] LABS: Sodium, Urine 42.6 mEq/L
[2020-01-03] MEDS: Piperacillin/Tazobactam 3.375 GM in 0.9 % Sodium Chloride Mini Bag 100 ML IVPB SCH ×3 (03:04→18:05)
[2020-01-03] MEDS: 0.9 % Sodium Chloride 1,000 ML IVC SCH ×2 (03:09→18:05)
[2020-01-03 05:43] LABS: Basophils % 0.5 %; Hemoglobin 9.2 g/dL (11.5-15.4)
[2020-01-03 05:45] LABS: Basophils # 0.1 K/mcL (0.0-0.2); Eosinophils # 0.6 K/mcL (0.0-0.6); Hematocrit 32.3 % (35.3-44.9); Immature Granulocytes % 3.9 % (0-4); Lymphocytes # 0.9 K/mcL (0.6-4.6); Lymphocytes % 6.5 %; Mean Corpuscular HGB Conc 28.5 g/dL (31.6-35.5); Mean Corpuscular Volume 101.9 fL (83.0-100.0); Monocytes % 3.2 %; Neutrophils # 11.4 K/mcL (1.6-8.9); Platelet Count 436 K/mcL (140-400); Red Blood Count 3.17 M/mcL (3.82-4.97); Red Cell Distribution Width 22.6 % (11.5-14.5); Segmented Neutrophils % 81.9 %; White Blood Count 13.9 K/mcL (4.3-11.1)
[2020-01-03 05:47] LABS: Monocytes # 0.4 K/mcL (0.0-1.3)
[2020-01-03 06:01] LABS: Potassium 3.9 mEq/L (3.5-5.1)
[2020-01-03 06:21] LABS: Hypochromasia Present (Not Present); Platelet Estimate Normal (Normal)
[2020-01-03] MEDS: Aspirin 81 MG TAB.CHEW PO SCH (08:45)
[2020-01-03] MEDS: *HR* OxyCODONE/APAP 5/325 TABLET PO PRN (08:46)
[2020-01-03] MEDS: Nystatin POWDER 30 GM BOTTLE TP SCH ×3 (08:50→20:06)
[2020-01-03 11:55] LABS: INR 3.4; Prothrombin Time 38.5 Seconds (9.4-12.1)
[2020-01-03 15:45] LABS: Uric Acid 6.4 mg/dL (2.3-7.6)
[2020-01-04] MEDS: *HR* OxyCODONE/APAP 5/325 TABLET PO PRN (00:07)
[2020-01-04 03:44] LABS: INR 3.8; Prothrombin Time 42.1 Seconds (9.4-12.1)
[2020-01-04 03:47] LABS: Basophils # 0.1 K/mcL (0.0-0.2); Basophils % 0.7 %; Eosinophils # 0.5 K/mcL (0.0-0.6); Hematocrit 31.1 % (35.3-44.9); Hemoglobin 8.7 g/dL (11.5-15.4); Immature Granulocytes % 3.7 % (0-4); Lymphocytes # 0.9 K/mcL (0.6-4.6); Lymphocytes % 7.7 %; Mean Corpuscular Hemoglobin 28.9 pg (28.0-33.3); Mean Corpuscular Volume 103.3 fL (83.0-100.0); Mean Platelet Volume 8.8 fL (9.4-12.4); Monocytes # 0.4 K/mcL (0.0-1.3); Monocytes % 3.2 %; Neutrophils # 9.8 K/mcL (1.6-8.9); Platelet Count 446 K/mcL (140-400); Red Blood Count 3.01 M/mcL (3.82-4.97); Segmented Neutrophils % 80.7 %; White Blood Count 12.1 K/mcL (4.3-11.1)
[2020-01-04 04:03] LABS: Calcium 8.7 mg/dL (8.6-10.3); Potassium 4.1 mEq/L (3.5-5.1)
[2020-01-04 04:14] LABS: Anisocytosis 1+ (Not Present); Hypochromasia Present (Not Present); Platelet Estimate Normal (Normal)
[2020-01-04 04:53] LABS: Hepatitis B Surface Antigen Nonreactive (Nonreactive)
[2020-01-04 05:21] LABS: Hepatitis B Core IgM Nonreactive (Nonreactive)
[2020-01-04 05:22] LABS: Hepatitis A Antibody IgM Nonreactive (Nonreactive); Hepatitis C Virus Antibody Nonreactive (Nonreactive)
[2020-01-04] MEDS: 0.9 % Sodium Chloride 1,000 ML IVC SCH (08:49)
[2020-01-04] MEDS: Aspirin 81 MG TAB.CHEW PO SCH (09:00)
[2020-01-04] MEDS ORDERED: Furosemide 40 MG/4 ML VIAL IVP ONE (09:14)
[2020-01-04 10:46] LABS: ABG Base Excess -6 mEq/L (-2 to 3); ABG HCO3 22 mEq/L (21-27); ABG Oxygen Saturation 94 % (95-98); ABG PCO2 55 mmHg (35-45); ABG PH 7.22 pH Units (7.32-7.45); ABG PO2 87 mmHg (85-104); ABG TCO2 24 mEq/L (20-26)
[2020-01-04 12:32] LABS: Adenovirus Not Detected (Not Detect); Bordetella Pertussis Not Detected (Not Detect); Chlamydophila pneumoniae Not Detected (Not Detect); Coronavirus 229E Not Detected (Not Detect); Coronavirus HKU1 Not Detected (Not Detect); Coronavirus NL63 Not Detected (Not Detect); Coronavirus OC43 Not Detected (Not Detect); Human Metapneumovirus Not Detected (Not Detect); Human Rhinovirus/Enterovirus Not Detected (Not Detect); Influenza A Subtype 2009 H1 Not Detected (Not Detect); Influenza B Not Detected (Not Detect); Mycoplasma pneumoniae Not Detected (Not Detect); Parainfluenza Virus 1 Not Detected (Not Detect); Parainfluenza Virus 2 Not Detected (Not Detect); Parainfluenza Virus 3 Not Detected (Not Detect); Parainfluenza Virus 4 Not Detected (Not Detect); Respiratory Syncytial Virus Not Detected (Not Detect); SARS-CoV-2 Not Detected (Not Detect)
[2020-01-04] MEDS: MethylPREDNISolone 40 MG/ML VIAL IVP SCH (12:51)
[2020-01-04] MEDS: Ipratropium/Albuterol Neb 3 ML IH SCH ×2 (15:39→21:37)
[2020-01-04] MEDS: Nystatin POWDER 30 GM BOTTLE TP SCH ×3 (18:49→23:30)
[2020-01-04] MEDS: Piperacillin/Tazobactam 3.375 GM in 0.9 % Sodium Chloride Mini Bag 100 ML IVPB SCH (18:50)
[2020-01-04] MEDS: Albumin 25% 25gram/100mL 25 GM/100 ML IV.SOLN IVPB SCH (23:30)
[2020-01-05] MEDS: Piperacillin/Tazobactam 3.375 GM in 0.9 % Sodium Chloride Mini Bag 100 ML IVPB SCH ×3 (02:35→18:32)
[2020-01-05 03:00] LABS: VBG HCO3 22 mEq/L (21-27); VBG PCO2 52 mmHg (41-51); VBG PH 7.23 pH Units (7.32-7.42); VBG PO2 208 mmHg (25-50)
[2020-01-05 03:02] LABS: Hematocrit 28.2 % (35.3-44.9); Hemoglobin 8.2 g/dL (11.5-15.4); Mean Corpuscular HGB Conc 29.1 g/dL (31.6-35.5); Mean Corpuscular Hemoglobin 30.1 pg (28.0-33.3); Mean Corpuscular Volume 103.7 fL (83.0-100.0); Mean Platelet Volume 8.9 fL (9.4-12.4); Platelet Count 475 K/mcL (140-400); Red Blood Count 2.72 M/mcL (3.82-4.97); White Blood Count 11.8 K/mcL (4.3-11.1)
[2020-01-05 03:06] LABS: INR 3.9
[2020-01-05 03:13] LABS: Prothrombin Time 43.7 Seconds (9.4-12.1)
[2020-01-05 03:22] LABS: Calcium 8.9 mg/dL (8.6-10.3); Potassium 3.9 mEq/L (3.5-5.1)
[2020-01-05] MEDS: Ipratropium/Albuterol Neb 3 ML IH SCH ×4 (04:15→22:40)
[2020-01-05] MEDS: Albumin 25% 25gram/100mL 25 GM/100 ML IV.SOLN IVPB SCH (09:33)
[2020-01-05] MEDS: Aspirin 81 MG TAB.CHEW PO SCH (09:33)
[2020-01-05] MEDS: Nystatin POWDER 30 GM BOTTLE TP SCH ×3 (09:33→19:50)
[2020-01-05] MEDS: MethylPREDNISolone 40 MG/ML VIAL IVP SCH (09:33)
[2020-01-06] MEDS: Piperacillin/Tazobactam 3.375 GM in 0.9 % Sodium Chloride Mini Bag 100 ML IVPB SCH ×2 (02:49→08:40)
[2020-01-06 03:09] LABS: VBG HCO3 25 mEq/L (21-27); VBG PCO2 49 mmHg (41-51); VBG PH 7.32 pH Units (7.32-7.42); VBG PO2 160 mmHg (25-50)
[2020-01-06 03:23] LABS: INR 4.3
[2020-01-06 03:29] LABS: Calcium 8.9 mg/dL (8.6-10.3); Potassium 3.8 mEq/L (3.5-5.1)
[2020-01-06 03:30] LABS: Mean Platelet Volume 9.2 fL (9.4-12.4)
[2020-01-06 03:31] LABS: Hematocrit 22.7 % (35.3-44.9); Hemoglobin 6.5 g/dL (11.5-15.4); Mean Corpuscular HGB Conc 28.6 g/dL (31.6-35.5); Mean Corpuscular Volume 101.3 fL (83.0-100.0); Platelet Count 463 K/mcL (140-400); Red Blood Count 2.24 M/mcL (3.82-4.97); Red Cell Distribution Width 22.8 % (11.5-14.5); White Blood Count 11.1 K/mcL (4.3-11.1)
[2020-01-06 03:52] LABS: Prothrombin Time 47.4 Seconds (9.4-12.1)
[2020-01-06] MEDS: Ipratropium/Albuterol Neb 3 ML IH SCH ×4 (04:11→21:51)
[2020-01-06] MEDS ORDERED: 0.9 % Sodium Chloride 250 ML ONE ×3 (06:06→14:11)
[2020-01-06] MEDS: Aspirin 81 MG TAB.CHEW PO SCH (07:36)
[2020-01-06] MEDS: Pantoprazole 40 MG VIAL IVP SCH ×2 (08:41→17:13)
[2020-01-06] MEDS: Nystatin POWDER 30 GM BOTTLE TP SCH ×3 (08:42→20:56)
[2020-01-06] MEDS: MethylPREDNISolone 40 MG/ML VIAL IVP SCH (08:42)
[2020-01-06 14:57] LABS: Hematocrit 24.6 % (35.3-44.9); Hemoglobin 7.4 g/dL (11.5-15.4)
[2020-01-06 15:10] LABS: % Iron Saturation 55 % (15-50); Iron 72 mcg/dL (50-170); Transferrin 94 mg/dL (203-362)
[2020-01-06 15:28] LABS: Ferritin 69 ng/mL (10-120)
[2020-01-06 16:17] LABS: INR 2.1; Prothrombin Time 23.4 Seconds (9.4-12.1)
[2020-01-07] MEDS: Ipratropium/Albuterol Neb 3 ML IH SCH ×2 (04:08→10:21)
[2020-01-07] MEDS: Pantoprazole 40 MG VIAL IVP SCH (05:19)
[2020-01-07 06:58] LABS: INR 1.4; Prothrombin Time 15.7 Seconds (9.4-12.1)
[2020-01-07 07:00] LABS: Hematocrit 20.2 % (35.3-44.9); Hemoglobin 6.1 g/dL (11.5-15.4); Mean Corpuscular HGB Conc 30.2 g/dL (31.6-35.5); Mean Corpuscular Hemoglobin 29.9 pg (28.0-33.3); Mean Platelet Volume 9.4 fL (9.4-12.4); Platelet Count 344 K/mcL (140-400); Red Blood Count 2.04 M/mcL (3.82-4.97); Red Cell Distribution Width 21.1 % (11.5-14.5)
[2020-01-07 07:14] LABS: Calcium 8.8 mg/dL (8.6-10.3); Potassium 3.6 mEq/L (3.5-5.1)
[2020-01-07] MEDS: Nystatin POWDER 30 GM BOTTLE TP SCH (10:28)
[2020-01-07] MEDS: Aspirin 81 MG TAB.CHEW PO SCH (10:28)
[2020-01-07] MEDS ORDERED: 0.9 % Sodium Chloride 250 ML ONE (10:58)
[2020-01-07 14:07] VITALS: BP 146/86
== END 2020-01-07 14:26 | disposition hospice, home (50) | DRG 871 ==
LOC: 3BNU 12:57 → EMEROOARM 12:57 → 3BNU 17:04 → 2ANU 12-29 18:23 → SUATTDRO 12-29 19:54
PROVIDERS: ADMIT Student in an Organized Health Care Education/Training Program; ATTEND Internal Medicine